=== PATIENT | male | born 1995 | race African-American/Black ===

== ENCOUNTER 2022-05-08 09:08 | Inpatient (IN) ==
--- NOTE | 2022-05-08 09:18 | Emergency Department Note ---
Impression & Plan Acute pulmonary embolism, DVT (deep venous thrombosis) ED Provider Note NAME: JER WHITE AGE: 26 SEX: M : 1995 ARRIVES VIA: Ambulance INFORMANT: Patient ED PROVIDER(S): Vlad Patel DO CHIEF COMPLAINT: chest pain HPI: Patient is a 26-year-old male who presents to the ER for right-sided chest pain. This started last night he was sitting around. He notes when he lays on the right side it is worse. Is also worse with breathing. Patient denies any headache or change in vision. No belly pain, nausea, vomiting, or diarrhea. He notes his right foot has been immobilized for at least the past 2-1/2 months. Denies any new pain tingling or numbness. No dysuria, urgency, or frequency. No other exacerbating or remitting factors. Pain is a 6 out of 10. Brought in by EMS. PAST MEDICAL HISTORY:See Below PAST SURGICAL HISTORY:See Below FAMILY HISTORY:See Below SOCIAL HISTORY:See Below HOME MEDICATIONS:See Below ALLERGIES:See Below VITALS:See Below PHYSICAL EXAMINATION: GENERAL: Sitting up in bed, alert, well appearing, well nourished, no distress, non-toxic EYE EXAM: normal conjunctiva. PERRL and EOM's grossly intact. OROPHARYNX: no exudate, no erythema, lips, buccal mucosa, and tongue normal and mucous membranes are moist NECK: supple, no nuchal rigidity, no adenopathy, non-tender LUNGS: Clear to auscultation. Normal chest wall mechanics HEART: no murmurs, S1 normal and S2 normal ABDOMEN: abdomen soft, non-tender, normo-active bowel sounds, no masses, no rebound or guarding. UPPER EXTREMITIES: upper extremities are grossly normal. LOWER EXTREMITIES: right calf in splint NEURO EXAM: Normal sensorium, cranial nerves II-XII grossly intact, normal speech, no gross weakness of arms, no gross weakness of legs. MEDICAL DECISION MAKING: Patient is a 26-year-old male who presents ER for chest pain which started in the past 24 hours. External records reviewed. Like he has been in cast/boot for over 2 months. IV was established blood was obtained. Borderline tachycardic. Labs show no significant leukocytosis or anemia. BMP with LFTs bilirubin and lipase is unremarkable. Troponin was negative. COVID-negative. CT angio of the chest confirms multiple PEs. Duplex of the right lower extremity confirms DVT. Patient was updated bedside. No bleeding risk factors, recent surgeries, coughing up blood, vomiting blood, urinating blood or previous head bleeds. Last surgery was on his leg over a month ago. Heparin drip and bolus ordered. Updated at bedside. Discussed with Dr. Holden Sequeira and patient was admitted to the hospital service for further evaluation of his multiple PEs. Triage Nursing notes reviewed. Limited review of prior medical records performed Vital Signs: reviewed and remarkable for no significant abnormalities Differential diagnosis: Cardiac ischemia, aortic dissection, pulmonary embolism, pneumothorax, pneumonia, pericarditis, myocarditis, esophageal rupture, GERD, cholecystitis, pancreatitis, musculoskeletal, as well as other pathologies. ER treatment provided: See below Diagnostics interpreted by me include EKG and cardiac monitoring as listed below: -Cardiac Monitoring: An order was placed for continuous cardiac monitoring. The monitor shows a rate of 80 with sinus rhythm. -ECG: Sinus rhythm rate 87 Normal axis No PVCs ST segment elevation in V3 through V6 -Laboratory studies:Interpreted by me as stated above in MDM and shown below. Imaging studies: Xrays: As interpreted by me: Portable AP upright 1 view of the chest shows no focal infiltrate CTs show: CT angio shows multiple PEs Duplex of the right lower extremity shows DVT Consultation(s): Discussed with Dr. Holden Sequeira for further evaluation treatment and management. Discussed with Brayden from orthopedic surgery. Procedures:none Critical Care: I have personally spent 32 minutes of critical care time in the direct management of this patient. This includes bedside care, interpretation of diagnostic studies, and testing, discussion with consultants, patient, and family members, and other required patient management activities. This 32 minutes is in excess of all separately billable procedures. Past Med/Surg History Medical History (Updated 05/08/22 @ 11:45 by Holden Sequeira MD) Asthma excercise induced, uses inhaler prior to working out 4-5 times per week Environmental and seasonal allergies GERD (gastroesophageal reflux disease) Palpitations 07/2021- saw Isabella Helm for "benign palpitations"; happens occasionally, "every few weeks or so" Sickle cell trait Sleep apnea cpap Surgical History Hx of wisdom tooth extraction No significant past surgical history Family History (Updated 03/31/22 @ 15:44 by Ladonna Morocho RN) Other No family history of adverse response to anesthesia Social History Smoking Status: Never smoker Second Hand Exposure: No; Hx Alcohol Use: Yes Hx Substance Use: No Preferred Language: Nepalese Communication Ability: Effective Packager Hand Required: No Beliefs That Will Affect Care: None Current Living Situation: Other Current Living Situation Comment: roommate Feels Safe at Home: Yes Assistive Devices: CPAP and Glasses Allergies Allergies Allergy/AdvReac Type Severity Reaction Status Date / Time nickel Allergy Intermediate Rash Verified 04/11/22 07:26 pollen extracts Allergy Intermediate ITCHY Verified 04/11/22 07:26 EYES, SNEEZING, CONGESTION Home Meds Home Medications Medication Instructions Recorded Confirmed albuterol sulfate 90 mcg/actuation 2 puff inhalation DIRECTED PRN 01/26/22 05/08/22 aerosol inhaler Shortness Of Breath Or Wheezing cetirizine 10 mg tablet (Zyrtec) 10 mg PO QAM 01/26/22 05/08/22 cholecalciferol (vitamin D3) 125 125 mcg PO QAM 01/26/22 05/08/22 mcg (5,000 unit) tablet (Vitamin D3) fluticasone 250 mcg-salmeterol 50 1 inh inhalation BID 01/26/22 05/08/22 mcg/dose blistr powdr for inhalation (Advair Diskus) montelukast 10 mg tablet 10 mg PO QAM 01/26/22 05/08/22 (Singulair) desonide 0.05 % topical cream 1 applic topical UD PRN ezcema 03/31/22 05/08/22 omeprazole magnesium 20 mg 20 mg PO QAM PRN gerd 03/31/22 05/08/22 tablet,delayed release (Prilosec OTC) fluticasone propionate 50 2 spray intranasal DAILY PRN Nasal 05/08/22 05/08/22 mcg/actuation nasal Congestion spray,suspension Results & Data (ED) Vital Signs Vital Signs - 24 hr 05/08/22 09:15 05/08/22 09:15 05/08/22 09:25 Temperature 36.9 C Temperature Source Oral Pulse Rate 103 H 95 H Pulse Rate [Apical] 93 H Respiratory Rate 18 18 18 Respiratory Effort / Characteristics Non-Labored Spontaneous Non-Labored Spontaneous Respiratory Depth Normal Normal Respiratory Pattern Regular Blood Pressure 165/118 H Blood Pressure [Right Arm] 165/118 H Blood Pressure Mean 133 Blood Pressure Mean [Right Arm] 133 Blood Pressure Position [Right Arm] Sitting Pulse Oximetry 96 97 97 Oxygen Delivery Method Room Air Room Air Room Air Sepsis New/Unexplained Change in Mental Status N/A Sepsis Action Taken by Nursing No Action Required Laboratory Data 05/08/22 09:20 05/08/22 09:20 Lab Results 05/08/22 05/08/22 05/08/22 Range/Units 09:20 09:20 09:20 WBC 6.43 (4.8-10.8) K/ul RBC 5.65 (4.70-6.10) M/uL Hgb 16.1 (14.0-18.0) g/dl Hct 46.8 (42.0-52.0) % MCV 82.8 (80.0-100.0) fL MCH 28.5 (25.0-34.0) pg MCHC 34.4 (32.0-36.0) g/dL RDW Std Deviation 36.4 (36.4-46.3) fL RDW Coeff of Lisbet 11.9 (11.5-14.5) % Plt Count 247 (130-400) K/uL MPV 10.1 (9.4-12.4) fL Immature Gran % (Auto) 0.2 % Neut % (Auto) 56.4 % Lymph % (Auto) 28.8 % [place] % (Auto) 11.5 % Eos % (Auto) 2.6 % Baso % (Auto) 0.5 % Neut # (Auto) 3.63 (1.40-6.50) K/uL Lymph # (Auto) 1.85 (1.2-3.4) K/uL [place] # (Auto) 0.74 H (0.11-0.59) K/uL Eos # (Auto) 0.17 (0-0.50) K/uL Baso # (Auto) 0.03 (0-0.2) K/uL Immature Gran # (Auto) 0.01 (0.01-0.20) K/uL PT 11.5 (9.0-12.0) Seconds INR 1.1 (0.9-1.1) APTT 25.6 (21.0-31.0) Seconds PTT Ratio 0.9 Sodium 140 (136-145) mmol/L Potassium 4.0 (3.5-5.1) mmol/L Chloride 104 (98-107) mmol/L Carbon Dioxide 30 (21-32) mmol/L Anion Gap 6 (3-11) BUN 11 (6-23) mg/dl Creatinine 1.18 (0.6-1.4) mg/dl Est Cr Clr Drug Dosing 106.6 ml/min Est GFR ( Amer) 98.8 ml/min Est GFR (Non-Af Amer) 85.3 ml/min BUN/Creatinine Ratio 9.3 L (10-20) Glucose 90 (70-99(Fasting)) mg/dl Calcium 10.2 H (8.5-10.1) mg/dl Total Bilirubin 0.9 (0.2-1.0) mg/dl AST 22 (13-39) U/L ALT 28 (7-52) U/L Alkaline Phosphatase 53 (34-104) U/L Troponin I High Sens 4.2 (0-20) pg/ml Total Protein 8.0 (6.0-8.3) gm/dl Albumin 4.3 (3.4-5.0) gm/dl Globulin 3.7 (2.5-4.0) gm/dl Albumin/Globulin Ratio 1.2 (0.9-2) Lipase 26 (11-82) U/L SARS-CoV-2, RNA, NAAT (NEGATIVE) 05/08/22 Range/Units 11:11 WBC (4.8-10.8) K/ul RBC (4.70-6.10) M/uL Hgb (14.0-18.0) g/dl Hct (42.0-52.0) % MCV (80.0-100.0) fL MCH (25.0-34.0) pg MCHC (32.0-36.0) g/dL RDW Std Deviation (36.4-46.3) fL RDW Coeff of Lisbet (11.5-14.5) % Plt Count (130-400) K/uL MPV (9.4-12.4) fL Immature Gran % (Auto) % Neut % (Auto) % Lymph % (Auto) % [place] % (Auto) % Eos % (Auto) % Baso % (Auto) % Neut # (Auto) (1.40-6.50) K/uL Lymph # (Auto) (1.2-3.4) K/uL [place] # (Auto) (0.11-0.59) K/uL Eos # (Auto) (0-0.50) K/uL Baso # (Auto) (0-0.2) K/uL Immature Gran # (Auto) (0.01-0.20) K/uL PT (9.0-12.0) Seconds INR (0.9-1.1) APTT (21.0-31.0) Seconds PTT Ratio Sodium (136-145) mmol/L Potassium (3.5-5.1) mmol/L Chloride (98-107) mmol/L Carbon Dioxide (21-32) mmol/L Anion Gap (3-11) BUN (6-23) mg/dl Creatinine (0.6-1.4) mg/dl Est Cr Clr Drug Dosing ml/min Est GFR ( Amer) ml/min Est GFR (Non-Af Amer) ml/min BUN/Creatinine Ratio (10-20) Glucose (70-99(Fasting)) mg/dl Calcium (8.5-10.1) mg/dl Total Bilirubin (0.2-1.0) mg/dl AST (13-39) U/L ALT (7-52) U/L Alkaline Phosphatase (34-104) U/L Troponin I High Sens (0-20) pg/ml Total Protein (6.0-8.3) gm/dl Albumin (3.4-5.0) gm/dl Globulin (2.5-4.0) gm/dl Albumin/Globulin Ratio (0.9-2) Lipase (11-82) U/L SARS-CoV-2, RNA, NAAT NEGATIVE (NEGATIVE) Administered Medications Discontinued Medications Enoxaparin Sodium (Enoxaparin Inj 120 Mg/0.8 Ml Syr) 120 mg SQ ONE STA Stop: 05/08/22 12:19 Last Admin: 05/08/22 13:45 Dose: 120 mg Documented By: AB Heparin Sodium/Dextrose (Heparin Iv Adult Wt-Based Standard With Bolus Protocol) 1 each IV NOW STA; Protocol Stop: 05/08/22 11:05 Last Admin: 05/08/22 12:19 Dose: Not Given Documented By: ARSENIO Ioversol (Optiray 320 500ml) 114 ml IV ONCE ONE Stop: 05/08/22 10:40 Last Admin: 05/08/22 10:40 Dose: 114 ml Documented By: DESIREE Imaging Data Radiologist's Impression: Chest CTA 05/08/22 09:14 CT ANGIOGRAM OF THE CHEST CLINICAL HISTORY: Dyspnea. Right-sided chest pain. COMPARISON STUDY: Chest x-ray dated 05/08/2022. TECHNIQUE: Following the IV administration of 114 cc of Optiray 320, CT angiogram of the chest was performed from the upper abdomen to the thoracic inlet utilizing the pulmonary embolus protocol. Images are reviewed in the axial, sagittal, and coronal planes. 3-D MIPS images are created and assessed. IV contrast was administered without complication. A dose lowering technique was utilized adhering to the principles of ALARA. CT DOSE: 833.11 mGy.cm FINDINGS: Thyroid: Imaged portions of the thyroid gland are normal in size and attenuatio n. Thoracic aorta: The thoracic aorta is normal in caliber and demonstrates standard 3-vessel arch anatomy. No dissection is seen. Pulmonary vasculature: The pulmonary trunk is normal in caliber. There are segmental and subsegmental pulmonary emboli within branches the right lower lobe pulmonary artery. This is best seen on axial image #116. No additional pulmonary emboli are seen bilaterally. Heart: The heart is normal in size and without pericardial effusion. Lungs and pleural spaces: There is trace right pleural effusion with associated atelectasis. The lungs are otherwise clear. The trachea and central airways are patent. Mediastinum: There is no mediastinal lymphadenopathy. Anny: Clear. Axillae: There is no axillary lymphadenopathy. Upper abdomen: Partially visualized upper abdominal viscera is within normal limits. Skeletal structures: No lytic or blastic bony lesions are seen. IMPRESSION: 1. There are segmental and subsegmental pulmonary emboli within branches of the right lower lobe pulmonary artery. 2. No additional pulmonary emboli are identified. 3. Trace right pleural effusion. 4. There is no airspace consolidation typical for pneumonia. ACT 112: Negative or not required by law. Electronically signed by: Nick Lambert M.D. 05/08/2022 10:48 AM Chest X-Ray 05/08/22 09:14 XR chest 1V portable CLINICAL HISTORY: Chest pain, nonspecific COMPARISON STUDY: Chest radiograph December 21, 2020. FINDINGS: Low lung volumes are noted. This may reflect a hypoventilatory study. There is no consolidation or evidence for pulmonary edema. Cardiomediastinal silhouette is unremarkable. IMPRESSION: No acute cardiopulmonary findings. ACT 112: Negative or not required by law. Electronically signed by: Leo Funk M.D. 05/08/2022 9:41 AM Venous Doppler Study 05/08/22 09:14 US venous doppler LE RT HISTORY: 26 years-old Male rle dvt ? Acute pain and swelling of the lower extremities COMPARISON: None TECHNIQUE: Multiple real-time sonographic images of the right lower extremity deep venous structures were obtained assessing grayscale appearance, color and spectral flow. FINDINGS: Occlusive thrombus noted within the peroneal and within one of the duplicated posterior tibial veins. Otherwise normal flow, compressibility, phasicity and augmentation. IMPRESSION: Likely acute right lower extremity DVT. ACT 112: Negative or not required by law. The above report was generated using voice recognition software. It may contain grammatical, syntax or spelling errors. Electronically signed by: Nadeem Hennessy M.D. 05/08/2022 10:27 AM Discharge Plan Visit Data Chief Complaint: Rib Injury/Pain ED Provider: Vlad Patel Discharge Problem: Acute pulmonary embolism, DVT (deep venous thrombosis) Patient Disposition: Admitted As Inpatient Discharge Instructions Interventions: ED Discharge Assessment Last Done: 05/08/22 12:50
--- NOTE | 2022-05-08 09:43 | XRay Report ---
XR chest 1V portable CLINICAL HISTORY: Chest pain, nonspecific COMPARISON STUDY: Chest radiograph December 21, 2020. FINDINGS: Low lung volumes are noted. This may reflect a hypoventilatory study. There is no consolida tion or evidence for pulmonary edema. Cardiomediastinal silhouette is unremarkable. IMPRESSION: No acute cardiopulmonary findings. ACT 112: Negative or not required by law. Electronically signed by: Leo Funk M.D. 05/08/2022 9:41 AM
[2022-05-08 10:01] LABS: Basophils # (auto) 0.03 K/uL (0-0.2); Basophils % (auto) 0.5 %; Eosinophils # (auto) 0.17 K/uL (0-0.50); Eosinophils % (auto) 2.6 %; Hematocrit (blood only) 46.8 % (42.0-52.0); Hemoglobin 16.1 g/dl (14.0-18.0); Immature Granulocytes # (auto) 0.01 K/uL (0.01-0.20); Immature Granulocytes % (auto) 0.2 %; Lymphocytes # (auto) 1.85 K/uL (1.2-3.4); Lymphocytes % (auto) 28.8 %; Mean Corpuscular Hemoglobin 28.5 pg (25.0-34.0); Mean Corpuscular Hgb Conc 34.4 g/dL (32.0-36.0); Mean Corpuscular Volume 82.8 fL (80.0-100.0); Mean Platelet Volume 10.1 fL (9.4-12.4); Monocytes # (auto) 0.74 K/uL (0.11-0.59); Monocytes % (auto) 11.5 %; Neutrophils # (auto) 3.63 K/uL (1.40-6.50); Neutrophils % (auto) 56.4 %; Platelet Count 247 K/uL (130-400); RDW Coefficient of Variation 11.9 % (11.5-14.5); RDW Standard Deviation 36.4 fL (36.4-46.3); Red Blood Count 5.65 M/uL (4.70-6.10); White Blood Count 6.43 K/ul (4.8-10.8)
[2022-05-08 10:20] LABS: Albumin Globulin Ratio 1.2 (0.9-2); Albumin Level 4.3 gm/dl (3.4-5.0); BUN Creatinine Ratio 9.3 (10-20); Bilirubin,Total 0.9 mg/dl (0.2-1.0); Calcium 10.2 mg/dl (8.5-10.1); Creatinine Clr Calc Pharmacy 106.6 ml/min; Est GFR (African American) 98.8 ml/min; Est GFR (Non-African American) 85.3 ml/min; Globulin 3.7 gm/dl (2.5-4.0)
[2022-05-08 10:25] LABS: Troponin I High Sensitivity 4.2 pg/ml (0-20)
--- NOTE | 2022-05-08 10:28 | Ultrasound Report ---
US venous doppler LE RT HISTORY: 26 years-old Male rle dvt ? Acute pain and swelling of the lower extremities COMPARISON: None TECHNIQUE: Multiple real-time sonographic images of the right lower extremity deep venous structures were obtained assessing grayscale appearance, color and spectral flow. FINDINGS: Occlusive thrombus noted within the peroneal and within one of the duplicated posterior tibial veins. Otherwise normal flow, compressibility, phasicity and augmentation. IMPRESSION: Likely acute right lower extremity DVT. ACT 112: Negative or not required by law. The above report was generated using voice recognition software. It may contain grammatical, syntax o r spelling errors. Electronically signed by: Nadeem Hennessy M.D. 05/08/2022 10:27 AM
[2022-05-08] MEDS ORDERED: OPTIRAY 320 500ml IV ONE (10:39)
--- NOTE | 2022-05-08 10:49 | CT Scan Report ---
CT ANGIOGRAM OF THE CHEST CLINICAL HISTORY: Dyspnea. Right-sided chest pain. COMPARISON STUDY: Chest x-ray dated 05/08/2022. TECHNIQUE: Following the IV administration of 114 cc of Optiray 320, CT angiogram of the chest was pe rformed from the upper abdomen to the thoracic inlet utilizing the pulmonary embolus protocol. Images are reviewed in the axial, sagittal, and coronal planes. 3-D MIPS images are created and assessed. I V contrast was administered without complication. A dose lowering technique was utilized adhering to the principles of ALARA. CT DOSE: 833.11 mGy.cm FINDINGS: Thyroid: Imaged portions of the thyroid gland are normal in size and attenuation. Thoracic aorta: The thoracic aorta is normal in caliber and demonstrates standard 3-vessel arch anato my. No dissection is seen. Pulmonary vasculature: The pulmonary trunk is normal in caliber. There are segmental and subsegmental pulmonary emboli within branches the right lower lobe pulmonary artery. This is best seen on axial i mage #116. No additional pulmonary emboli are seen bilaterally. Heart: The heart is normal in size and without pericardial effusion. Lungs and pleural spaces: There is trace right pleural effusion with associated atelectasis. The lung s are otherwise clear. The trachea and central airways are patent. Mediastinum: There is no mediastinal lymphadenopathy. Anny: Clear. Axillae: There is no axillary lymphadenopathy. Upper abdomen: Partially visualized upper abdominal viscera is within normal limits. Skeletal structures: No lytic or blastic bony lesions are seen. IMPRESSION: 1. There are segmental and subsegmental pulmonary emboli within branches of the right lower lobe pulm onary artery. 2. No additional pulmonary emboli are identified. 3. Trace right pleural effusion. 4. There is no airspace consolidation typical for pneumonia. ACT 112: Negative or not required by law. Electronically signed by: Nick Lambert M.D. 05/08/2022 10:48 AM
[2022-05-08] MEDS ORDERED: Heparin IV Adult Wt-Based Standard WITH Bolus Protocol IV STA (11:04)
[2022-05-08] MEDS ORDERED: HEPARIN SOD (PORCINE) 1000 UNIT/ML IV ONE (11:19)
--- NOTE | 2022-05-08 11:19 | History & Physical Report ---
Date of Service May 08, 2022 Assessment & Plan (1) Acute pulmonary embolism: Plan: Provoked due to current CAM boot and recent surgery - consider 3 months of anticoagulation depending ongoing risk of using the Cam boot Increased risk chronically due to sickle cell trait although no family history of venous thromboembolism - consider chemical prophylaxis in the future during higher risk activities such as long haul flights / car journeys. PESI score 35 -very low risk, 0 to 1.6% 30-day mortality Initial troponin negative and relatively small pulmonary emboli, no need for TTE Pending PT/INR and PTT will start on Lovenox 1 mg/kg twice daily with goal to switch to DOAC on discharge (discussed with Dr Espinoza regarding DOAC given increased BMI) (2) Environmental and seasonal allergies: Plan: Continue montelukast 10 mg p.o. every morning and cetirizine 10 mg p.o. every morning (3) Asthma: Plan: Uses Advair discus mainly for exercise-induced asthma, not using for the last month therefore we will continue to hold during his current admission (4) Sleep apnea: Plan: CPAP at bedtime - patient to have someone bring in his own (5) Sickle cell trait: Plan VTE Prophylaxis - Anticoagulation as above Diet - regular Disposition - admit to med telemetry Admission and Anticipated Discharge Date Admission Date: May 08, 2022 History of Present Illness Chief Complaint: Chest pain Primary Care Provider: LAURA Berman Abdi is a 26 year old male who presents to the ER with right-sided chest pain. He reports pain feeling behind his ribs starting at 7 to 8 PM last night. Progressively got worse although was able to get to sleep last night. On waking up this morning he became more severe, worse while rolling over to the right side and on inspiration, radiating up to his shoulder. Current severity 4/10, at worst 6/10. He called the medical hotline and was advised to go to the ER. He denies any shortness of breath. This is on a background of a right tibia stress fracture. He reports being in a cam boot initially for 2 months prior to surgery on April 11 and has been toe-touch weightbearing in a cam boot since then. He took aspirin 81 mg p.o. twice daily after surgery for 1 week but no VTE prophylaxis after this. No recent long-haul flights of car journeys. No known personal or family history of venous thromboembolism. He is at increased risk due to sickle cell trait. Allergies Allergy/AdvReac Type Severity Reaction Status Date / Time nickel Allergy Intermediate Rash Verified 04/11/22 07:26 pollen extracts Allergy Intermediate ITCHY Verified 04/11/22 07:26 EYES, SNEEZING, CONGESTION Home Medications Medication Instructions Recorded Confirmed Type albuterol sulfate 90 mcg/actuation 2 puff inhalation DIRECTED PRN 01/26/22 05/08/22 History aerosol inhaler Shortness Of Breath Or Wheezing cetirizine 10 mg tablet (Zyrtec) 10 mg PO QAM 01/26/22 05/08/22 History cholecalciferol (vitamin D3) 125 125 mcg PO QAM 01/26/22 05/08/22 History mcg (5,000 unit) tablet (Vitamin D3) fluticasone 250 mcg-salmeterol 50 1 inh inhalation BID 01/26/22 05/08/22 History mcg/dose blistr powdr for inhalation (Advair Diskus) montelukast 10 mg tablet 10 mg PO QAM 01/26/22 05/08/22 History (Singulair) desonide 0.05 % topical cream 1 applic topical UD PRN ezcema 03/31/22 05/08/22 History omeprazole magnesium 20 mg 20 mg PO QAM PRN gerd 03/31/22 05/08/22 History tablet,delayed release (Prilosec OTC) fluticasone propionate 50 2 spray intranasal DAILY PRN Nasal 05/08/22 05/08/22 History mcg/actuation nasal Congestion spray,suspension Past Med/Surg History Medical History (Updated 05/08/22 @ 11:45 by Holden Sequeira MD) Asthma excercise induced, uses inhaler prior to working out 4-5 times per week Environmental and seasonal allergies GERD (gastroesophageal reflux disease) Palpitations 07/2021- saw Isabella Helm for "benign palpitations"; happens occasionally, "every few weeks or so" Sickle cell trait Sleep apnea cpap Surgical History Hx of wisdom tooth extraction No significant past surgical history Family History (Updated 03/31/22 @ 15:44 by Ladonna Morocho RN) Other No family history of adverse response to anesthesia Social History Smoking Status: Never smoker Second Hand Exposure: No; Hx Alcohol Use: Yes Hx Substance Use: No Preferred Language: Tamazight Communication Ability: Effective Reconditioner Required: No Beliefs That Will Affect Care: None Current Living Situation: Other Current Living Situation Comment: roommate Feels Safe at Home: Yes Assistive Devices: CPAP and Glasses Review of Systems Review of Systems: All systems reviewed & are unremarkable except as noted in HPI & below Physical Exam Constitutional: WD/WN, vitals as above Eyes: + anicteric sclerae; normal pupil size ENMT: external ear and nose normal, oropharynx normal Respiratory: normal respiratory effort, lungs clear to auscultation Cardiovascular: RRR, no murmur, no edema Gastrointestinal (Abdomen): normal bowel sounds, soft, nontender, no hepatosplenomegaly Musculoskeletal: Right leg not examined, currently in CAM boot Skin: no rashes, warm and dry Neurologic: moves all extremities and awake; not confused Psychiatric: A+Ox3, euthymic affect Results & Data Results & Data ([facility] [place]) Vital Signs (Past 12 Hours) Vital Signs Temp Pulse Pulse Resp BP BP Pulse Ox 05/08/22 09:25 95 H 18 97 05/08/22 09:15 93 H 18 165/118 H 97 05/08/22 09:15 36.9 C 103 H 18 165/118 H 96 O2 Del Method 05/08/22 09:25 Room Air 05/08/22 09:15 Room Air 05/08/22 09:15 Room Air Laboratory Results Abnormal lab results 05/08/22 05/08/22 Range/Units 09:20 09:20 [place] # (Auto) 0.74 H (0.11-0.59) K/uL BUN/Creatinine Ratio 9.3 L (10-20) Calcium 10.2 H (8.5-10.1) mg/dl Diagnostic Findings XR chest 1V portable CLINICAL HISTORY: Chest pain, nonspecific COMPARISON STUDY: Chest radiograph December 21, 2020. FINDINGS: Low lung volumes are noted. This may reflect a hypoventilatory study. There is no consolidation or evidence for pulmonary edema. Cardiomediastinal silhouette is unremarkable. IMPRESSION: No acute cardiopulmonary findings. CT ANGIOGRAM OF THE CHEST CLINICAL HISTORY: Dyspnea. Right-sided chest pain. COMPARISON STUDY: Chest x-ray dated 05/08/2022. TECHNIQUE: Following the IV administration of 114 cc of Optiray 320, CT angiogram of the chest was performed from the upper abdomen to the thoracic inlet utilizing the pulmonary embolus protocol. Images are reviewed in the axi al, sagittal, and coronal planes. 3-D MIPS images are created and assessed. IV contrast was administered without complication. A dose lowering technique was utilized adhering to the principles of ALARA. CT DOSE: 833.11 mGy.cm FINDINGS: Thyroid: Imaged portions of the thyroid gland are normal in size and attenuation. Thoracic aorta: The thoracic aorta is normal in caliber and demonstrates monet dard 3-vessel arch anatomy. No dissection is seen. Pulmonary vasculature: The pulmonary trunk is normal in caliber. There are segmental and subsegmental pulmonary emboli within branches the right lower lobe pulmonary artery. This is best seen on axial image #116. No additional pulmonary emboli are seen bilaterally. Heart: The heart is normal in size and without pericardial effusion. Lungs and pleural spaces: There is trace right pleural effusion with associated atelectasis. The lungs are otherwise clear. The trachea and central airways are patent. Mediastinum: There is no mediastinal lymphadenopathy. Anny: Clear. Axillae: There is no axillary lymphadenopathy. Upper abdomen: Partially visualized upper abdominal viscera is within normal limits. Skeletal structures: No lytic or blastic bony lesions are seen. IMPRESSION: 1. There are segmental and subsegmental pulmonary emboli within branches of the right lower lobe pulmonary artery. 2. No additional pulmonary emboli are identified. 3. Trace right pleural effusion. 4. There is no airspace consolidation typical for pneumonia. US venous doppler LE RT HISTORY: 26 years-old Male rle dvt ? Acute pain and swelling of the lower extremities COMPARISON: None TECHNIQUE: Multiple real-time sonographic images of the right lower extremity deep venous structures were obtained assessing grayscale appearance, color and spectral flow. FINDINGS: Occlusive thrombus noted within the peroneal and within one of the duplicated posterior tibial veins. Otherwise normal flow, compressibility, phasicity and augmentation. IMPRESSION: Likely acute right lower extremity DVT. Medications Administered ER medications given: None ECG Indication: chest pain Rate (beats per minute): 87 Rhythm: normal sinus Findings: + nonspecific-ST abn Change: no significant change Code Status & VTE Plan Code Status Full VTE Prophylaxis Plan VTE Prophylaxis will be ordered: Yes PG Care Time/CCT Total # of Minutes Spent Total Time Spent with Patient: Total time spent is greater than 50% in coordination of care (as documented) at patient's floor/unit and/or counseling patient: Coding Level of Care Code 28287 INT INP/OBS CARE 2/55MIN Diagnoses Acute pulmonary embolism I26.99 Environmental and seasonal allergies J30.89 Asthma J45.909 Sleep apnea G47.30 Sickle cell trait D57.3
[2022-05-08] MEDS ORDERED: HEPARIN SODIUM/DEXTROSE 25,000 UNITS/500 ML BAG IV SCH (11:30)
[2022-05-08 12:01] LABS: INR 1.1 (0.9-1.1); Partial Thromboplastin Ratio 0.9; Partial Thromboplastin Time 25.6 Seconds (21.0-31.0); Prothrombin Time 11.5 Seconds (9.0-12.0)
[2022-05-08] MEDS ORDERED: ENOXAPARIN 1 MG/KG SQ SCH (12:15)
[2022-05-08] MEDS ORDERED: ENOXAPARIN INJ 120 MG/0.8 ML SYR SQ STA (12:18)
--- NOTE | 2022-05-08 12:23 | Electrocardiogram Report ---
Test Reason : Blood Pressure : / mmHG Vent. Rate : 087 BPM Atrial Rate : 087 BPM P-R Int : 142 ms QRS Dur : 084 ms QT Int : 330 ms P-R-T Axes : 044 047 021 degrees QTc Int : 397 ms Normal sinus rhythm Minor ST elevation, most consistent with repolarization variant Normal ECG No previous ECGs available Confirmed by Ant Frey ([id number]) on 05/08/2022 12:22:53 PM Referred By: Confirmed By:Ant Frey
[2022-05-08] MEDS ORDERED: ACETAMINOPHEN 325 MG TAB PO PRN (13:13)
[2022-05-08] MEDS ORDERED: traMADol HCL 50 MG TABLET PO PRN ×2 (13:13)
[2022-05-08] MEDS ORDERED: ONDANSETRON INJ 2 MG/ML 2 ML VIAL IV PRN (13:13)
[2022-05-08] MEDS: CETIRIZINE HCL 10 MG TABLET PO SCH (15:31)
[2022-05-08] MEDS: CHOLECALCIFEROL 5,000 UNITS 125 MCG TAB PO SCH (15:32)
[2022-05-09] MEDS: ENOXAPARIN INJ 120 MG/0.8 ML SYR SQ SCH ×2 (00:36→08:55)
[2022-05-09 08:45] LABS: Hematocrit (blood only) 46.1 % (42.0-52.0); Hemoglobin 16.8 g/dl (14.0-18.0); Mean Corpuscular Hemoglobin 29.5 pg (25.0-34.0); Mean Corpuscular Hgb Conc 36.4 g/dL (32.0-36.0); Mean Platelet Volume 11.2 fL (9.4-12.4); Platelet Count 268 K/uL (130-400); RDW Coefficient of Variation 11.9 % (11.5-14.5); RDW Standard Deviation 35.3 fL (36.4-46.3); Red Blood Count 5.69 M/uL (4.70-6.10); White Blood Count 5.73 K/ul (4.8-10.8)
[2022-05-09] MEDS: CETIRIZINE HCL 10 MG TABLET PO SCH (08:55)
[2022-05-09] MEDS: CHOLECALCIFEROL 5,000 UNITS 125 MCG TAB PO SCH (08:56)
[2022-05-09] MEDS ORDERED: MONTELUKAST SODIUM 10 MG TABLET PO SCH (09:00)
[2022-05-09 09:08] LABS: Anion Gap 7 (3-11); BUN Creatinine Ratio 11.3 (10-20); Blood Urea Nitrogen 16 mg/dl (6-23); Calcium 10.1 mg/dl (8.5-10.1); Carbon Dioxide 29 mmol/L (21-32); Chloride 101 mmol/L (98-107); Creatinine Clr Calc Pharmacy 88.6 ml/min; Est GFR (Non-African American) 68.2 ml/min; Glucose 82 mg/dl (70-99(Fasting)); Sodium 137 mmol/L (136-145)
--- NOTE | 2022-05-09 11:34 | Discharge Summary ---
Date of Service May 09, 2022 Admission HPI Per Admitting Provider Grovermagnusramos Patton is a 26 year old male who presents to the ER with right-sided chest pain. He reports pain feeling behind his ribs starting at 7 to 8 PM last night. Progressively got worse although was able to get to sleep last night. On waking up this morning he became more severe, worse while rolling over to the right side and on inspiration, radiating up to his shoulder. Current severity 4/10, at worst 6/10. He called the medical hotline and was advised to go to the ER. He denies any shortness of breath. This is on a background of a right tibia stress fracture. He reports being in a cam boot initially for 2 months prior to surgery on April 11 and has been toe-touch weightbearing in a cam boot since then. He took aspirin 81 mg p.o. twice daily after surgery for 1 week but no VTE prophylaxis after this. No recent long-haul flights of car journeys. No known personal or family history of venous thromboembolism. He is at increased risk due to sickle cell trait. Principal Diagnosis Right lower extremity DVT, acute pulmonary embolism Discharge Exam General-alert and oriented x3, no fevers, no chills HEENT-head atraumatic and normocephalic, pupils equal and reactive to light, extraocular muscles intact Neck-no lymphadenopathy or thyromegaly, trachea midline Chest-clear to auscultation percussion. No rales wheezing or rhonchi Cardiac-regular rate and rhythm, normal S1 and S2 Abdomen-normal bowel sounds, nontender, no hepatosplenomegaly Extremities-right lower extremity immobilized in a walking boot Neuro-cranial nerves II through XII intact, motor and sensory function within normal limits, strength symmetrical , no focal deficits Psych-normal affect, normal mood Discharge Data Allergies Allergy/AdvReac Type Severity Reaction Status Date / Time nickel Allergy Intermediate Rash Verified 04/11/22 07:26 pollen extracts Allergy Intermediate ITCHY Verified 04/11/22 07:26 EYES, SNEEZING, CONGESTION Ordered Studies 05/08/22 09:14 CT angio chest PE protocol Stat US venous doppler LE RT Stat Hospital Course (1) Acute pulmonary embolism: Probably related to acute right lower extremity DVT associated with the underlying tibial fracture and subsequent boot placement. He is hemodynamically stable and not requiring any oxygen supplementation. He has been treated with intravenous heparin while hospitalized and will be discharged on Eliquis. (2) Environmental and seasonal allergies: Continue montelukast 10 mg p.o. every morning and cetirizine 10 mg p.o. every morning (3) Asthma: Uses Advair discus mainly for exercise-induced asthma. Currently stable (4) Sleep apnea: CPAP at bedtime (5) Sickle cell trait: Aware. No intervention necessary at this time (6) Right leg DVT: Treated while hospitalized with intravenous heparin drip. Oral Eliquis at discharge Plan Home today, May 09, on Eliquis. Follow-up with PCP. Total Time Total Time Spent Total Time Spent (In Minutes): 35 minutes Discharge Plan Discharge Items Patient Disposition: Home - Self-Care Reason For Visit: ACUTE PULMONARY EMBOLI Discharge Diagnosis: Acute right lower extremity DVT, acute pulmonary embolism Activity: Resume your previous activity Non-emergency contact: Primary Care Provider Call non-emergency contact if: you have any medication questions Follow-up/Referrals: Katelin Christianson CRNP [Primary Care Provider] - Diet: Regular Addtl Attending Provider Instructions: Take Eliquis 5 mg twice daily Pending Studies at Discharge: No Stand-Alone Forms: My [employer], Smoking Cessation Medications and DC Order Prescriptions: New Eliquis 5 mg tablet 5 mg PO BID Qty: 20 0RF Continued desonide 0.05 % cream 1 applic TOPICAL UD PRN (Reason: ezcema) omeprazole magnesium [Prilosec OTC] 20 mg Tablet,Delayed Release (Dr/Ec) 20 mg PO QAM PRN (Reason: gerd) fluticasone propionate [Flonase] 50 mcg/actuation [place],Suspension 2 spray INTRANASAL DAILY PRN (Reason: Nasal Congestion) Rx Instructions: administer into each nostril fluticasone propion-salmeterol [Advair Diskus] 250-50 mcg/dose Blister With Device 1 inh INHALATION BID cetirizine [Zyrtec] 10 mg Tablet 10 mg PO QAM montelukast [Singulair] 10 mg Tablet 10 mg PO QAM albuterol sulfate 90 mcg/actuation Hfa Aerosol Inhaler 2 puff INHALATION DIRECTED PRN (Reason: Shortness Of Breath Or Wheezing) cholecalciferol (vitamin D3) [Vitamin D3] 125 mcg (5,000 unit) Tablet 125 mcg PO QAM Discharge Orders: Discharge Order (Routine); Ordered 05/09/22 Ordered By: Jesus Thurman Admission Data Admit Date/Time: 05/08/22 11:39 Attending Provider: Jesus Thurman Admit Provider: Holden Sequeira Primary Care Provider: Katelin Christianson Coding Level of Care Code HOSP INP/OBS DISCH >30 MIN Diagnoses Acute pulmonary embolism I26.99 Environmental and seasonal allergies J30.89 Asthma J45.909 Sleep apnea G47.30 Sickle cell trait D57.3 Right leg DVT I82.401
== END 2022-05-09 13:00 | disposition home or self-care (01) | DRG 176 ==
LOC: ED 09:08 → SUATTDRO 11:39 → EDINP 11:39 → 2N 12:50

== ENCOUNTER 2022-08-10 17:50 | Inpatient (IN) ==
[2022-08-10] MEDS ORDERED: SODIUM CHLORIDE 0.9% 1000ML 2,000 ML IV ONE (18:06)
--- NOTE | 2022-08-10 18:24 | Emergency Department Note ---
History of Present Illness General Chief complaint: Tachycardia Stated complaint: HIGH HEART RATE,SOB,SORENESS IN LEFT LEG Time Seen by Provider: 08/10/22 18:00 History of Present Illness Provider complaint: Palpitations left leg pain shortness of breath Onset (ago): day(s) 4 Maximum Pain Intensity: 5 27-year-old male with history of DVT and PE presents emergency department for 4 days of palpitations, shortness of breath, and left lower extremity pain. Patient reports that he suffered a DVT in the right lower extremity and pulmonary embolus after a orthopedic surgery in March. Patient states he was on Eliquis and was told to stop taking his Eliquis on August 05. He reports that on August 06 he started having his symptoms. Patient reports his Apple Watch has been having readings in the 130s to 140s. He reports feeling lightheaded and shortness of breath. Reports no chest pain. Pain in the left lower extremity is in the left popliteal suprapatellar and lateral thigh area. No exogenous hormone use or steroid usage. No excessive activity. No hematuria or dysuria. No melena or hematochezia. No nausea vomiting or diarrhea. Home Medications Medication Instructions Recorded Confirmed Type albuterol sulfate 90 mcg/actuation 2 puff inhalation DIRECTED PRN 01/26/22 08/10/22 History aerosol inhaler Shortness Of Breath Or Wheezing cetirizine 10 mg tablet (Zyrtec) 10 mg PO QAM 01/26/22 08/10/22 History cholecalciferol (vitamin D3) 125 125 mcg PO QAM 01/26/22 08/10/22 History mcg (5,000 unit) tablet (Vitamin D3) fluticasone 250 mcg-salmeterol 50 1 inh inhalation BID 01/26/22 08/10/22 History mcg/dose blistr powdr for inhalation (Advair Diskus) montelukast 10 mg tablet 10 mg PO QAM 01/26/22 08/10/22 History (Singulair) desonide 0.05 % topical cream 1 applic topical UD PRN ezcema 03/31/22 08/10/22 History omeprazole magnesium 20 mg 20 mg PO QAM PRN gerd 03/31/22 08/10/22 History tablet,delayed release (Prilosec OTC) fluticasone propionate 50 2 spray intranasal DAILY PRN Nasal 05/08/22 08/10/22 History mcg/actuation nasal Congestion spray,suspension apixaban 5 mg tablet (Eliquis) 5 mg PO BID #20 tabs 05/09/22 08/10/22 Rx fluoxetine 10 mg capsule 10 mg PO QAM 07/17/22 08/10/22 History trazodone 50 mg tablet 50 mg PO HS 08/10/22 08/10/22 History venlafaxine 150 mg 150 mg PO QAM 08/10/22 08/10/22 History capsule,extended release 24 hr Allergies Allergy/AdvReac Type Severity Reaction Status Date / Time nickel Allergy Intermediate Rash Verified 08/10/22 18:54 pollen extracts Allergy Intermediate ITCHY Verified 08/10/22 18:54 EYES, SNEEZING, CONGESTION Past Med/Surg History Medical History Asthma excercise induced, uses inhaler prior to working out 4-5 times per week Environmental and seasonal allergies GERD (gastroesophageal reflux disease) Palpitations 07/2021- saw Isabella Helm for "benign palpitations"; happens occasionally, "every few weeks or so" Sickle cell trait Sleep apnea cpap Surgical History Hx of wisdom tooth extraction No significant past surgical history Family History Other No family history of adverse response to anesthesia Social History Smoking Status: Never smoker Second Hand Exposure: No; Do You Dip or Chew Tobacco: No; Hx Alcohol Use: Yes Hx Substance Use: No Preferred Language: Luxembourgish Communication Ability: Effective 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 Beliefs That Will Affect Care: None Current Living Situation: Other Current Living Situation Comment: Roommate Feels Safe at Home: Yes Gender Identity: Other Assistive Devices: CPAP and Glasses Physical Exam Vital Signs Vital Signs - 24 hr 08/10/22 17:51 08/10/22 18:07 08/10/22 18:09 Temperature 36.3 C L Temperature Source Temporal Artery Scan Pulse Rate 140 H 124 H Pulse Rate [Apical] 128 H Pulse Rhythm [Apical] Regular Respiratory Rate 18 22 Respiratory Effort / Characteristics Non-Labored Spontaneous Respiratory Depth Normal Respiratory Pattern Regular Blood Pressure 141/81 H Blood Pressure [Right Arm] 152/99 H Blood Pressure Mean 101 Blood Pressure Mean [Right Arm] 116 Blood Pressure Position [Right Arm] Lying Pulse Oximetry 95 95 Oxygen Delivery Method Room Air Room Air Sepsis New/Unexplained Change in Mental Status No Sepsis Action Taken by Nursing No Action Required 08/10/22 18:16 Temperature Temperature Source Pulse Rate Pulse Rate [Apical] Pulse Rhythm [Apical] Respiratory Rate Respiratory Effort / Characteristics Respiratory Depth Respiratory Pattern Blood Pressure Blood Pressure [Right Arm] Blood Pressure Mean Blood Pressure Mean [Right Arm] Blood Pressure Position [Right Arm] Pulse Oximetry 93 Oxygen Delivery Method Room Air Sepsis New/Unexplained Change in Mental Status Sepsis Action Taken by Nursing Physical Exam GENERAL: He is oriented to person, place, and time. He appears well-developed and well-nourished. He does not appear distressed. HENT: Exam performed. - Head: Normocephalic and atraumatic. - Right Ear: External ear normal. No mastoid erythema - Left Ear: External ear normal. No mastoid erythema NECK: Normal range of motion. Neck supple. No JVD present. No tracheal deviation and normal range of motion present. CV: Tachycardic rate, regular rhythm, normal heart sounds and intact distal pulses. There is no peripheral edema. Palpable radial pulses bue. PULM/CHEST: Effort normal and breath sounds normal. No respiratory distress. No stridor. He has no wheezes. He has no rales. - Chest Wall: He exhibits no tenderness. ABD: The abdomen is soft. MUSC/SKEL: Right lower extremity: In brace Left lower extremity: Pain on palpation suprapatellar and lateral thigh area. Pain on palpation of the popliteal and posterior thigh area. Palpable DP PT pulse. Compartments of lower extremity are soft. Palpable DP PT pulse. LYMPH: No cervical adenopathy. NEURO: He is alert and oriented to person, place, and time. He has normal strength. No cranial nerve deficit or sensory deficit. Coordination and gait normal. GCS eye subscore is 4. GCS verbal subscore is 5. GCS motor subscore is 6. Cerebellar tests wnl. SKIN: Skin is warm and dry. He is not diaphoretic. PSYCH: He has a normal mood and affect. Behavior is normal. Judgment and thought content normal. Course Course 1800: The patient was evaluated in room C12. A complete history and physical exam was performed Cardiac monitoring: An order was placed for continuous cardiac monitoring. The monitor shows a rate of 130 with sinus tachycardia rhythm interpreted by 2006: Patient remains tachycardic. Labs within normal limits however imaging does show numerous pulmonary emboli in the multiple lobar and segmental/subsegmental branches. Ultrasound also shows a DVT. The PEs are increased in number compared to his previous UTI in April 2022 when those PEs were thought to be due to his recent surgery. Patient has only been off of the Eliquis for 5 days. For this number of clots to form in 5 days is very surprising. On previous hospitalizations patient had no hypercoagulability work-up. Patient will be admitted on heparin drip to the [facility] team for hypercoagulability work-up and possible echo. Administered Medications Discontinued Medications Sodium Chloride (Nss 1000ml) 2,000 mls @ 999 mls/hr IV .Q2H1M ONE Stop: 08/10/22 20:06 Last Admin: 08/10/22 18:12 Dose: 999 mls/hr Documented By: SANDY Ioversol (Optiray 320 500ml) 109 ml IV ONCE ONE Stop: 08/10/22 19:05 Last Admin: 08/10/22 19:05 Dose: 109 ml Documented By: PURA Critical Care Time Critical Care Time: Yes Total Critical Care Time: 62 I have personally spent greater than 62 minutes of critical care time in the direct management of this patient. This includes bedside care, interpretation of diagnostic studies, and testing, discussion with consultants, patient, and family members, and other required patient management activities. This 62 minutes is in excess of all separately billable procedures. Medical Decision Making Laboratory Data Attestation: I reviewed the patient's lab results. 08/10/22 18:08 08/10/22 18:08 Lab Results 08/10/22 08/10/22 08/10/22 Range/Units 18:08 18:08 18:08 WBC 8.19 (4.8-10.8) K/ul RBC 5.74 (4.70-6.10) M/uL Hgb 16.4 (14.0-18.0) g/dl Hct 46.5 (42.0-52.0) % MCV 81.0 (80.0-100.0) fL MCH 28.6 (25.0-34.0) pg MCHC 35.3 (32.0-36.0) g/dL RDW Std Deviation 37.7 (36.4-46.3) fL RDW Coeff of Lisbet 12.9 (11.5-14.5) % Plt Count 227 (130-400) K/uL MPV 10.4 (9.4-12.4) fL Immature Gran % (Auto) 0.2 % Neut % (Auto) 71.7 % Lymph % (Auto) 18.6 % Grimes % (Auto) 7.9 % Eos % (Auto) 1.2 % Baso % (Auto) 0.4 % Neut # (Auto) 5.87 (1.40-6.50) K/uL Lymph # (Auto) 1.52 (1.2-3.4) K/uL Grimes # (Auto) 0.65 H (0.11-0.59) K/uL Eos # (Auto) 0.10 (0-0.50) K/uL Baso # (Auto) 0.03 (0-0.2) K/uL Immature Gran # (Auto) 0.02 (0.01-0.20) K/uL PT 11.6 (9.0-12.0) Seconds INR 1.1 (0.9-1.1) APTT 24.2 (21.0-31.0) Seconds PTT Ratio 0.9 Sodium 139 (136-145) mmol/L Potassium 4.1 (3.5-5.1) mmol/L Chloride 107 (98-107) mmol/L Carbon Dioxide 26 (21-32) mmol/L Anion Gap 6 (3-11) BUN 12 (6-23) mg/dl Creatinine 1.23 (0.6-1.4) mg/dl Est Cr Clr Drug Dosing 106.5 ml/min Est GFR ( Amer) 93.3 ml/min Est GFR (Non-Af Amer) 80.5 ml/min BUN/Creatinine Ratio 9.8 L (10-20) Glucose 122 H (70-99(Fasting)) mg/dl Calcium 9.8 (8.6-10.3) mg/dl Total Creatine Kinase 230 H (30-223) U/L Troponin I High Sens 5.6 (0-20) pg/ml Lipase 34 (11-82) U/L SARS-CoV-2, RNA, NAAT (NEGATIVE) 08/10/22 Range/Units 18:17 WBC (4.8-10.8) K/ul RBC (4.70-6.10) M/uL Hgb (14.0-18.0) g/dl Hct (42.0-52.0) % MCV (80.0-100.0) fL MCH (25.0-34.0) pg MCHC (32.0-36.0) g/dL RDW Std Deviation (36.4-46.3) fL RDW Coeff of Lisbet (11.5-14.5) % Plt Count (130-400) K/uL MPV (9.4-12.4) fL Immature Gran % (Auto) % Neut % (Auto) % Lymph % (Auto) % Grimes % (Auto) % Eos % (Auto) % Baso % (Auto) % Neut # (Auto) (1.40-6.50) K/uL Lymph # (Auto) (1.2-3.4) K/uL Grimes # (Auto) (0.11-0.59) K/uL Eos # (Auto) (0-0.50) K/uL Baso # (Auto) (0-0.2) K/uL Immature Gran # (Auto) (0.01-0.20) K/uL PT (9.0-12.0) Seconds INR (0.9-1.1) APTT (21.0-31.0) Seconds PTT Ratio Sodium (136-145) mmol/L Potassium (3.5-5.1) mmol/L Chloride (98-107) mmol/L Carbon Dioxide (21-32) mmol/L Anion Gap (3-11) BUN (6-23) mg/dl Creatinine (0.6-1.4) mg/dl Est Cr Clr Drug Dosing ml/min Est GFR ( Amer) ml/min Est GFR (Non-Af Amer) ml/min BUN/Creatinine Ratio (10-20) Glucose (70-99(Fasting)) mg/dl Calcium (8.6-10.3) mg/dl Total Creatine Kinase (30-223) U/L Troponin I High Sens (0-20) pg/ml Lipase (11-82) U/L SARS-CoV-2, RNA, NAAT NEGATIVE (NEGATIVE) Imaging Data Attestation: I personally reviewed and interpreted this imaging study as follows: My Impression: Chest x-ray negative. Airway clear. No pneumothorax. No consolidation. No cardiomegaly or cephalization.. No free air under the diaphragm. No fractures of the skeletal structures. Ultrasound: DVT present. Radiologist's Impression: Chest X-Ray 08/10/22 18:06 XR chest 1V portable CLINICAL HISTORY: Chest pain, nonspecific TECHNIQUE: Single frontal radiograph of the chest was obtained. Comparison: None available at the time of this dictation. FINDINGS: No lines and tubes are seen. The cardiomediastinal silhouette is normal. The lungs are clear. No evidence of pleural effusion or pneumothorax. IMPRESSION: No acute chest disease. ACT 112: Negative or not required by law. Electronically signed by: Rob Puente M.D. 08/10/2022 6:27 PM Chest CTA 08/10/22 18:07 CT angio chest PE protocol CLINICAL HISTORY: Chest Pain, eval for PE TECHNIQUE: Multidetector row helical CT of the chest was performed with angiographic protocol. Coronal and sagittal reformations were obtained. Coronal and sagittal MIPS were obtained from the axial data set and were submitted for review. Automated dose lowering techniques and/or adjustment according to patient size were utilized for this exam. CT DOSE: 902.30 mGy.cm Comparison: Comparison is made to CTA chest 05/08/2022 FINDINGS: Lungs and pleura: Normal. Heart and pericardium: Heart size is normal. No pericardial effusion. Vessels: Pulmonary emboli are seen in the left lower lobar artery and its branches as well as within the right middle and lower lobar arteries. Segmental and subsegmental emboli are also seen in the bilateral upper lobes. Mediastinum and maría: Unremarkable. Chest wall and lower neck: Unremarkable. Abdomen: Unremarkable. Bones: Unremarkable. IMPRESSION: Numerous pulmonary emboli are seen involving multiple lobar and segmental/s ubsegmental branches. No right heart strain is seen. ACT 112: Negative or not required by law. Electronically signed by: Rob Puente M.D. 08/10/2022 7:22 PM Venous Doppler Study 08/10/22 18:07 US venous doppler LE LT CLINICAL HISTORY: ro dvt TECHNIQUE: Left lower extremity real-time compression venous ultrasound with Color Doppler imaging. Utilizing real-time ultrasonic imaging multiple real time high-resolution ultrasonic images with compression and noncompression maneuvers of the deep venous system in addition to color doppler imaging were performed from the common femoral vein through the proximal calf veins. COMPARISON: None available at the time of this dictation. FINDINGS/IMPRESSION: Occlusive deep venous thrombus is seen in both peroneal veins. No other deep venous thrombus is seen. No superficial venous thrombosis is identified. ACT 112: Negative or not required by law. Electronically signed by: Rob Puente M.D. 08/10/2022 8:03 PM ECG Data Attestation: I personally reviewed and interpreted this ECG as follows: Indication: + palpitations Rate (beats per minute): 133 Rhythm: + normal sinus ECG Intervals/blocks: + Normal NE and + Normal QT-c ECG ST segments: + Normal ST segments Additional Comments: QRS 70 MDM Narrative 1800: The patient was evaluated in room C12. A complete history and physical exam was performed Cardiac monitoring: An order was placed for continuous cardiac monitoring. The monitor shows a rate of 130 with sinus tachycardia rhythm interpreted by me 2006: Patient remains tachycardic. Labs within normal limits however imaging does show numerous pulmonary emboli in the multiple lobar and segmental/subsegmental branches. Ultrasound also shows a DVT. The PEs are increased in number compared to his previous UTI in April 2022 when those PEs were thought to be due to his recent surgery. Patient has only been off of the Eliquis for 5 days. For this number of clots to form in 5 days is very surprising. On previous hospitalizations patient had no hypercoagulability work-up. Patient will be admitted on heparin drip to the [facility] hospitalist team for hypercoagulability work-up and possible echo. Impression & Plan Pulmonary emboli, DVT (deep venous thrombosis) Discharge Plan Visit Data Chief Complaint: Tachycardia Stated Complaint: HIGH HEART RATE,SOB,SORENESS IN LEFT LEG ED Provider: Tony Escobar Discharge Problem: Pulmonary emboli, DVT (deep venous thrombosis) Patient Disposition: Admitted As Inpatient Forms Stand Alone Forms: My [facility] Prescriptions Prescriptions: No Action desonide 0.05 % cream 1 applic TOPICAL UD PRN (Reason: ezcema) omeprazole magnesium [Prilosec OTC] 20 mg Tablet,Delayed Release (Dr/Ec) 20 mg PO QAM PRN (Reason: gerd) fluticasone propionate 50 mcg/actuation [place],Suspension 2 spray INTRANASAL DAILY PRN (Reason: Nasal Congestion) Rx Instructions: administer into each nostril Eliquis 5 mg tablet 5 mg PO BID Qty: 20 0RF trazodone 50 mg tablet 50 mg PO HS venlafaxine 150 mg capsule,extended release 24hr 150 mg PO QAM fluticasone propion-salmeterol [Advair Diskus] 250-50 mcg/dose Blister With Device 1 inh INHALATION BID cetirizine [Zyrtec] 10 mg Tablet 10 mg PO QAM montelukast [Singulair] 10 mg Tablet 10 mg PO QAM albuterol sulfate 90 mcg/actuation Hfa Aerosol Inhaler 2 puff INHALATION DIRECTED PRN (Reason: Shortness Of Breath Or Wheezing) cholecalciferol (vitamin D3) [Vitamin D3] 125 mcg (5,000 unit) Tablet 125 mcg PO QAM fluoxetine 10 mg capsule 10 mg PO QAM Referrals Referrals: Katelin Christianson CRNP [Primary Care Provider] -
[2022-08-10 18:26] LABS: Basophils # (auto) 0.03 K/uL (0-0.2); Basophils % (auto) 0.4 %; Eosinophils % (auto) 1.2 %; Hematocrit (blood only) 46.5 % (42.0-52.0); Hemoglobin 16.4 g/dl (14.0-18.0); Immature Granulocytes # (auto) 0.02 K/uL (0.01-0.20); Immature Granulocytes % (auto) 0.2 %; Lymphocytes # (auto) 1.52 K/uL (1.2-3.4); Lymphocytes % (auto) 18.6 %; Mean Corpuscular Hemoglobin 28.6 pg (25.0-34.0); Mean Corpuscular Hgb Conc 35.3 g/dL (32.0-36.0); Mean Platelet Volume 10.4 fL (9.4-12.4); Monocytes # (auto) 0.65 K/uL (0.11-0.59); Monocytes % (auto) 7.9 %; Neutrophils # (auto) 5.87 K/uL (1.40-6.50); Neutrophils % (auto) 71.7 %; Platelet Count 227 K/uL (130-400); RDW Coefficient of Variation 12.9 % (11.5-14.5); RDW Standard Deviation 37.7 fL (36.4-46.3); Red Blood Count 5.74 M/uL (4.70-6.10); White Blood Count 8.19 K/ul (4.8-10.8)
--- NOTE | 2022-08-10 18:28 | XRay Report ---
XR chest 1V portable CLINICAL HISTORY: Chest pain, nonspecific TECHNIQUE: Single frontal radiograph of the chest was obtained. Comparison: None available at the time of this dictation. FINDINGS: No lines and tubes are seen. The cardiomediastinal silhouette is normal. The lungs are clear. No evid ence of pleural effusion or pneumothorax. IMPRESSION: No acute chest disease. ACT 112: Negative or not required by law. Electronically signed by: Rob Puente M.D. 08/10/2022 6:27 PM
[2022-08-10 18:38] LABS: BUN Creatinine Ratio 9.8 (10-20); Calcium 9.8 mg/dl (8.6-10.3); Creatinine Clr Calc Pharmacy 106.5 ml/min; Est GFR (African American) 93.3 ml/min; Est GFR (Non-African American) 80.5 ml/min; Potassium 4.1 mmol/L (3.5-5.1)
[2022-08-10 18:45] LABS: Troponin I High Sensitivity 5.6 pg/ml (0-20)
[2022-08-10 18:55] LABS: INR 1.1 (0.9-1.1); Partial Thromboplastin Ratio 0.9; Partial Thromboplastin Time 24.2 Seconds (21.0-31.0); Prothrombin Time 11.6 Seconds (9.0-12.0)
[2022-08-10] MEDS ORDERED: OPTIRAY 320 500ml IV ONE (19:04)
--- NOTE | 2022-08-10 19:24 | CT Scan Report ---
CT angio chest PE protocol CLINICAL HISTORY: Chest Pain, eval for PE TECHNIQUE: Multidetector row helical CT of the chest was performed with angiographic protocol. Chew l and sagittal reformations were obtained. Coronal and sagittal MIPS were obtained from the axial skye a set and were submitted for review. Automated dose lowering techniques and/or adjustment according to patient size were utilized for this exam. CT DOSE: 902.30 mGy.cm Comparison: Comparison is made to CTA chest 05/08/2022 FINDINGS: Lungs and pleura: Normal. Heart and pericardium: Heart size is normal. No pericardial effusion. Vessels: Pulmonary emboli are seen in the left lower lobar artery and its branches as well as within the right middle and lower lobar arteries. Segmental and subsegmental emboli are also seen in the markos ateral upper lobes. Mediastinum and maría: Unremarkable. Chest wall and lower neck: Unremarkable. Abdomen: Unremarkable. Bones: Unremarkable. IMPRESSION: Numerous pulmonary emboli are seen involving multiple lobar and segmental/subsegmental branches. No r ight heart strain is seen. ACT 112: Negative or not required by law. Electronically signed by: Rob Puente M.D. 08/10/2022 7:22 PM
[2022-08-10] MEDS ORDERED: Heparin IV Adult Wt-Based Standard WITH Bolus Protocol IV STA (19:57)
--- NOTE | 2022-08-10 20:06 | Ultrasound Report ---
US venous doppler LE LT CLINICAL HISTORY: ro dvt TECHNIQUE: Left lower extremity real-time compression venous ultrasound with Color Doppler imaging. U tilizing real-time ultrasonic imaging multiple real time high-resolution ultrasonic images with compr ession and noncompression maneuvers of the deep venous system in addition to color doppler imaging we re performed from the common femoral vein through the proximal calf veins. COMPARISON: None available at the time of this dictation. FINDINGS/IMPRESSION: Occlusive deep venous thrombus is seen in both peroneal veins. No other deep venous thrombus is seen. No superficial venous thrombosis is identified. ACT 112: Negative or not required by law. Electronically signed by: Rob Puente M.D. 08/10/2022 8:03 PM
[2022-08-10] MEDS ORDERED: HEPARIN SOD (PORCINE) 1000 UNIT/ML IV ONE ×2 (20:12→20:30)
[2022-08-10] MEDS ORDERED: HEPARIN SODIUM/DEXTROSE 25,000 UNITS/500 ML BAG IV SCH (20:15)
--- NOTE | 2022-08-10 20:56 | History & Physical Report ---
Date of Service August 10, 2022 Assessment & Plan (1) Pulmonary emboli: Plan: 27yo Male with PMH hx. DVT, depression/anxiety here for SOB chest pain left leg pain found to have extensive PE and left leg DVT. Extensive PE and left leg DVT -hx. sickle cell trait -CTA chest: Numerous pulmonary emboli are seen involving multiple lobar and segmental/subsegmental branches. No right heart strain is seen. -Doppler left leg: Occlusive deep venous thrombus is seen in both peroneal veins. No other deep venous thrombus is seen. No superficial venous thrombosis is identified. -doing well on room air -hypercoagulability panel ordered (unfortunately did get some heparin before labs drawn, heparin drip on hold) -can start heparin drip after labs drawn -creat kinase elevated 230, trop wnl Depression Anxiety -continue venlafaxine, trazodone FENa: regular Code Status: full DVT PPX: will start heparin drip after labs are drawn Dispo: med/tele Rosemary Nair D.O. PGY 2, FCM (2) DVT (deep venous thrombosis): History of Present Illness Chief Complaint: SOB chest pain Primary Care Provider: LAURA Berman 27yo Male with PMH hx. DVT, depression/anxiety here for SOB chest pain left leg pain found to have extensive PE and left leg DVT. Patient was previously here 04/11 for right tibial stress fracture repaired by orthopeadics. on 05/08 he returned to the ED was found to have PE and right leg DVT, started on eliquis. He was on eliquis 5mg BID for 3 months, dosage ended last Thursday. On thursday he noted left knee pain that continued to worsen, Thursday came to ED had left knee xray was negative given toradol sent home, thursday knee pain continued he tried ibuprofen didn't help, today noted elevated heart rate mild SOB and chest pain came to ED, CTA chest notes extensive pulmonary embolism, doppler notes DVT in left leg. Patient was started briefly on heparin drip, which was stopped in order to draw hypercoagulability work up panels. Patient understands he may be on anticoagulation for an extended period of time after this visit. Of note he does have sickle cell trait. FH grandmother at age 85 was hospitalized for a blood clot, patient attributes this to her age. He is to f/u with orthopaedics for his right leg brace on 08/19 Allergies Allergy/AdvReac Type Severity Reaction Status Date / Time nickel Allergy Intermediate Rash Verified 08/10/22 18:54 pollen extracts Allergy Intermediate ITCHY Verified 08/10/22 18:54 EYES, SNEEZING, CONGESTION Home Medications Medication Instructions Recorded Confirmed Type albuterol sulfate 90 mcg/actuation 2 puff inhalation DIRECTED PRN 01/26/22 08/10/22 History aerosol inhaler Shortness Of Breath Or Wheezing cetirizine 10 mg tablet (Zyrtec) 10 mg PO QAM 01/26/22 08/10/22 History cholecalciferol (vitamin D3) 125 125 mcg PO QAM 01/26/22 08/10/22 History mcg (5,000 unit) tablet (Vitamin D3) fluticasone 250 mcg-salmeterol 50 1 inh inhalation BID 01/26/22 08/10/22 History mcg/dose blistr powdr for inhalation (Advair Diskus) montelukast 10 mg tablet 10 mg PO QAM 01/26/22 08/10/22 History (Singulair) desonide 0.05 % topical cream 1 applic topical UD PRN ezcema 03/31/22 08/10/22 History omeprazole magnesium 20 mg 20 mg PO QAM PRN gerd 03/31/22 08/10/22 History tablet,delayed release (Prilosec OTC) fluticasone propionate 50 2 spray intranasal DAILY PRN Nasal 05/08/22 08/10/22 History mcg/actuation nasal Congestion spray,suspension apixaban 5 mg tablet (Eliquis) 5 mg PO BID #20 tabs 05/09/22 08/10/22 Rx fluoxetine 10 mg capsule 10 mg PO QAM 07/17/22 08/10/22 History trazodone 50 mg tablet 50 mg PO HS 08/10/22 08/10/22 History venlafaxine 150 mg 150 mg PO QAM 08/10/22 08/10/22 History capsule,extended release 24 hr Past Med/Surg History Medical History Asthma excercise induced, uses inhaler prior to working out 4-5 times per week Environmental and seasonal allergies GERD (gastroesophageal reflux disease) Palpitations 07/2021- saw Isabella Alicja for "benign palpitations"; happens occasionally, "every few weeks or so" Sickle cell trait Sleep apnea cpap Surgical History Hx of wisdom tooth extraction No significant past surgical history Family History Other No family history of adverse response to anesthesia Social History Smoking Status: Never smoker Second Hand Exposure: No; Do You Dip or Chew Tobacco: No; Hx Alcohol Use: Yes Hx Substance Use: No Preferred Language: Azeri Communication Ability: Effective Chronic Manager Required: No Beliefs That Will Affect Care: None Current Living Situation: Other Current Living Situation Comment: Roommate Feels Safe at Home: Yes Gender Identity: Other Assistive Devices: CPAP and Glasses Physical Exam Constitutional: WD/WN, vitals as above Eyes: PERRL, conjunctivae normal, anicteric sclerae ENMT: external ear and nose normal, oropharynx normal Neck: trachea midline, no thyromegaly Respiratory: normal respiratory effort, lungs clear to auscultation Cardiovascular: RRR, no murmur, no edema Gastrointestinal (Abdomen): Inspection/Auscultation: abdomen normal to inspection Percussion/Palpation: abdomen soft; abdomen nontender Musculoskeletal: mild gonzales on palpation to left calf, pain for noticeable with leg dorsiflexion Skin: no rashes, warm and dry Results & Data Results & Data Vital Signs (Past 12 Hours) Vital Signs Temp Pulse Pulse Resp BP BP Pulse Ox 08/10/22 18:16 93 08/10/22 18:09 124 H 08/10/22 18:07 128 H 22 152/99 H 95 08/10/22 17:51 36.3 C L 140 H 18 141/81 H 95 O2 Del Method 08/10/22 18:16 Room Air 08/10/22 18:09 08/10/22 18:07 Room Air 08/10/22 17:51 Room Air Code Status & VTE Plan VTE Prophylaxis Plan VTE Prophylaxis will be ordered: Yes Resident Activity Tracking Resident Involvement: Resident Care Provided Care Provided: Adult Hospital Medicine (1) Pulmonary emboli Pulmonary embolism type: multiple subsegmental (without acute cor pulmonale) Qualified Code(s): I26.94 - Multiple subsegmental pulmonary emboli without acute cor pulmonale (2) DVT (deep venous thrombosis) Affected thrombotic vein of extremity: unspecified vein of extremity Senior Statistician nicity: acute DVT location: lower extremity Laterality: bilateral Qualified Code(s): I82.403 - Acute embolism and thrombosis of unspecified deep veins of lower extremity, bilateral
[2022-08-10] MEDS ORDERED: PANTOprazole 40 MG TAB PO PRN (20:57)
[2022-08-10] MEDS ORDERED: ALBUTEROL HFA 8 GM INHALER INH PRN (20:57)
[2022-08-10] MEDS ORDERED: traZODone HCL 50 MG TAB PO SCH (21:00)
[2022-08-11 02:56] LABS: Mean Corpuscular Hemoglobin 28.5 pg (25.0-34.0); Mean Corpuscular Hgb Conc 34.1 g/dL (32.0-36.0); Mean Corpuscular Volume 83.7 fL (80.0-100.0); Mean Platelet Volume 10.5 fL (9.4-12.4); Platelet Count 209 K/uL (130-400); RDW Coefficient of Variation 13.2 % (11.5-14.5); RDW Standard Deviation 40.4 fL (36.4-46.3); Red Blood Count 5.26 M/uL (4.70-6.10); White Blood Count 7.48 K/ul (4.8-10.8)
[2022-08-11 03:11] LABS: BUN Creatinine Ratio 8.5 (10-20); Calcium 9.4 mg/dl (8.6-10.3); Est GFR (African American) 98.1 ml/min; Est GFR (Non-African American) 84.7 ml/min; Potassium 3.8 mmol/L (3.5-5.1)
[2022-08-11 03:37] LABS: Partial Thromboplastin Ratio 1.6; Prothrombin Time 11.4 Seconds (9.0-12.0)
[2022-08-11 03:44] LABS: Partial Thromboplastin Time 44.5 Seconds (21.0-31.0)
[2022-08-11] MEDS: ACETAMINOPHEN 325 MG TAB PO PRN ×2 (03:47→08:56)
--- NOTE | 2022-08-11 08:39 | Electrocardiogram Report ---
Test Reason : Blood Pressure : / mmHG Vent. Rate : 133 BPM Atrial Rate : 133 BPM P-R Int : 134 ms QRS Dur : 070 ms QT Int : 282 ms P-R-T Axes : 059 059 -21 degrees QTc Int : 419 ms Sinus tachycardia Nonspecific ST abnormality Abnormal ECG When compared with ECG of 08-MAY-2022 09:12, Vent. rate has increased BY [address] no longer elevated in Anterior leads Confirmed by Elie Barney ([id number]) on 08/11/2022 8:38:35 AM Referred By: REFERRED SELF Confirmed By:Martin Barney
[2022-08-11] MEDS ORDERED: VENLAFAXINE HCL XR 150 MG CAPXR PO SCH (09:00)
[2022-08-11] MEDS ORDERED: FLUTICASONE/VILANTEROL 200/25MCG 14 PUFFS/INHALER INH SCH (09:00)
[2022-08-11] MEDS ORDERED: CHOLECALCIFEROL 5,000 UNITS 125 MCG TAB PO SCH (09:00)
[2022-08-11] MEDS ORDERED: CETIRIZINE HCL 10 MG TABLET PO SCH (09:00)
[2022-08-11] MEDS ORDERED: MONTELUKAST SODIUM 10 MG TABLET PO SCH (09:00)
[2022-08-11 09:28] LABS: Partial Thromboplastin Ratio 1.7; Partial Thromboplastin Time 46.7 Seconds (21.0-31.0)
--- NOTE | 2022-08-11 09:35 | Orthopedic Consultation ---
Date of Consultation August 11, 2022 Assessment & Plan (1) Acute pain of left knee: IMPRESSION: Left knee pain secondarily to patellar tendinosis with component of left lower leg pain due to recent DVT. PLAN: At this point he is too sensitive to utilize a patellar tendinitis strap with activities, but may add that in in the future. Will trial Lidoderm patches 12 hours on during the day and 12 hours off at night. Will trial nitroglycerin patches 12 hours on at night and 12 hours off during the day. May require crutches. PT/OT. Unfortunately is unable to utilize NSAIDs as he will be on Eliquis for a long time due to second episode of PE after recently stopping Eliquis. Continue care per primary service. Will continue to follow. Will keep his appointment in 2 weeks to assess how he is doing. Present on Admission?: Yes (2) History of open reduction and internal fixation (ORIF) procedure: IMPRESSION: 4 months status post ORIF right tibia stress fracture, pleased with his progress. PLAN: We will obtain x-rays AP and lateral of the right tib-fib. Continue progressing his weightbearing and plan to discontinue the boot over the next 2 to 4 weeks depending on his symptoms and x-rays. Present on Admission?: Yes History of Present Illness Reason for Consultation: Left knee pain Requesting Physician: Shahzad Simental MD Attending Physician: Jesus Thurman MD History of Present Illness Ale is a pleasant 27-year-old male, with sickle cell trait, who had previously undergone ORIF right tibia stress fracture 04/11/2022. He had developed right lower leg DVT and PE 05/08/2022, started on Eliquis. Carlos schumacher has been progressing his weight bearing and is full in the boot without pain and even without pain for short distances without the boot. He stopped using this 08/05/2022 and started developing left knee pain the next day that continued to worsen. He had x-rays performed Thursday while in the ED and was given Toradol for his pain. He notes his pain is anteriorly and has a sense of giving way. He attempted using ibuprofen which was not helpful. He return to the ED with mild SOB and chest pain and was found to have a left lower leg DVT on Dopplers and extensive pulmonary emboli with a CTA of his chest. He was admitted to the hospitalist service. Allergies Allergy/AdvReac Type Severity Reaction Status Date / Time nickel Allergy Intermediate Rash Verified 08/10/22 18:54 pollen extracts Allergy Intermediate ITCHY Verified 08/10/22 18:54 EYES, SNEEZING, CONGESTION Home Medications Medication Instructions Recorded Confirmed Type albuterol sulfate 90 mcg/actuation 2 puff inhalation DIRECTED PRN 01/26/22 History aerosol inhaler Shortness Of Breath Or Wheezing cetirizine 10 mg tablet (Zyrtec) 10 mg PO QAM 01/26/22 08/10/22 History cholecalciferol (vitamin D3) 125 125 mcg PO QAM 01/26/22 08/10/22 History mcg (5,000 unit) tablet (Vitamin D3) fluticasone 250 mcg-salmeterol 50 1 inh inhalation BID 01/26/22 08/10/22 History mcg/dose blistr powdr for inhalation (Advair Diskus) montelukast 10 mg tablet 10 mg PO QAM 01/26/22 08/10/22 History (Singulair) desonide 0.05 % topical cream 1 applic topical UD PRN ezcema 03/31/22 08/10/22 History omeprazole magnesium 20 mg 20 mg PO QAM PRN gerd 03/31/22 08/10/22 History tablet,delayed release (Prilosec OTC) fluticasone propionate 50 2 spray intranasal DAILY PRN Nasal 05/08/22 08/10/22 History mcg/actuation nasal Congestion spray,suspension apixaban 5 mg tablet (Eliquis) 5 mg PO BID #20 tabs 05/09/22 08/10/22 Rx fluoxetine 10 mg capsule 10 mg PO QAM 07/17/22 08/10/22 History trazodone 50 mg tablet 50 mg PO HS 08/10/22 08/10/22 History venlafaxine 150 mg 150 mg PO QAM 08/10/22 08/10/22 History capsule,extended release 24 hr Patient History Medical History Asthma excercise induced, uses inhaler prior to working out 4-5 times per week Environmental and seasonal allergies GERD (gastroesophageal reflux disease) Palpitations 07/2021- saw Isabella Helm for "benign palpitations"; happens occasionally, "every few weeks or so" Sickle cell trait Sleep apnea cpap Surgical History (Updated 08/11/22 @ 09:37 by Bogdan Simental MD) History of open reduction and internal fixation (ORIF) procedure Right Tibia Stress fracture Hx of wisdom tooth extraction Family History Other No family history of adverse response to anesthesia Social History Smoking Status: Never smoker Second Hand Exposure: No; Do You Dip or Chew Tobacco: No; Hx Alcohol Use: Yes Alcohol type: beer, wine and hard liquor Hx Substance Use: No Preferred Language: Hungarian Communication Ability: Effective Student Life Dean Required: No Beliefs That Will Affect Care: None Current Living Situation: Other Current Living Situation Comment: Lives with roommates in apartment Feels Safe at Home: Yes Safety Concerns: Feels Safe At This Time Gender Identity: Other Assistive Devices: Crutches and Special Shoe Assistive Devices Comment: R foot brace Review of Systems Review of Systems: All systems reviewed & are unremarkable except as noted in HPI & below Physical Exam Physical Exam: LLE: Neurovascularly intact. Sensation to light touch intact distally, 2+ DP pulse, gastrocsoleus, tibialis anterior, EHL 5/5. - Effusion. ++ Tenderness palpation inferior pole patella, along the entire length of his patellar tendon. Knee ROM 0-45 degrees. - Cornelio's. - Joint line tenderness. Ligamentous examination is limited secondarily to lack of full ROM. + Tenderness palpation about the calf but is otherwise soft. RLE: Neurovascularly intact. Incision is healing nicely, no evidence of infection. - Tenderness to percussion along the tibia. Results & Data Vital Signs (Past 12 Hours) Vital Signs Temp Pulse Pulse Resp BP BP Pulse Ox 08/11/22 07:45 36.7 C 72 19 108/70 94 08/11/22 06:01 81 08/11/22 05:40 87 08/11/22 03:24 37.6 C H 73 18 145/65 H 97 08/11/22 02:30 102 H 22 95 08/11/22 02:26 90 19 101/67 08/11/22 01:00 85 23 08/10/22 23:55 90 O2 Del Method 08/11/22 07:45 Room Air 08/11/22 06:01 08/11/22 05:40 08/11/22 03:24 Room Air 08/11/22 02:30 Room Air 08/11/22 02:26 08/11/22 01:00 08/10/22 23:55 Diagnostic Findings Laboratory Results WBC 7.48 K/ul (4.8-10.8) 08/11/22 02:33 RBC 5.26 M/uL (4.70-6.10) 08/11/22 02:33 Hgb 15.0 g/dl (14.0-18.0) 08/11/22 02:33 Hct 44.0 % (42.0-52.0) 08/11/22 02:33 MCV 83.7 fL (80.0-100.0) 08/11/22 02:33 MCH 28.5 pg (25.0-34.0) 08/11/22 02:33 MCHC 34.1 g/dL (32.0-36.0) 08/11/22 02:33 RDW Std Deviation 40.4 fL (36.4-46.3) 08/11/22 02:33 RDW Coeff of Lisbet 13.2 % (11.5-14.5) 08/11/22 02:33 Plt Count 209 K/uL (130-400) 08/11/22 02:33 MPV 10.5 fL (9.4-12.4) 08/11/22 02:33 Immature Gran % (Auto) 0.2 % 08/10/22 18:08 Neut % (Auto) 71.7 % 08/10/22 18:08 Lymph % (Auto) 18.6 % 08/10/22 18:08 [place] % (Auto) 7.9 % 08/10/22 18:08 Eos % (Auto) 1.2 % 08/10/22 18:08 Baso % (Auto) 0.4 % 08/10/22 18:08 Neut # (Auto) 5.87 K/uL (1.40-6.50) 08/10/22 18:08 Lymph # (Auto) 1.52 K/uL (1.2-3.4) 08/10/22 18:08 [place] # (Auto) 0.65 K/uL (0.11-0.59) H 08/10/22 18:08 Eos # (Auto) 0.10 K/uL (0-0.50) 08/10/22 18:08 Baso # (Auto) 0.03 K/uL (0-0.2) 08/10/22 18:08 Immature Gran # (Auto) 0.02 K/uL (0.01-0.20) 08/10/22 18:08 PT 11.4 Seconds (9.0-12.0) 08/11/22 02:33 INR 1.0 (0.9-1.1) 08/11/22 02:33 APTT 46.7 Seconds (21.0-31.0) H* 08/11/22 08:22 PTT Ratio 1.7 08/11/22 08:22 Sodium 138 mmol/L (136-145) 08/11/22 02:33 Potassium 3.8 mmol/L (3.5-5.1) 08/11/22 02:33 Chloride 105 mmol/L (98-107) 08/11/22 02:33 Carbon Dioxide 28 mmol/L (21-32) 08/11/22 02:33 Anion Gap 5 (3-11) 08/11/22 02:33 BUN 10 mg/dl (6-23) 08/11/22 02:33 Creatinine 1.18 mg/dl (0.6-1.4) 08/11/22 02:33 Est Cr Clr Drug Dosing 111.0 ml/min 08/11/22 02:33 Est GFR ( Amer) 98.1 ml/min 08/11/22 02:33 Est GFR (Non-Af Amer) 84.7 ml/min 08/11/22 02:33 BUN/Creatinine Ratio 8.5 (10-20) L 08/11/22 02:33 Glucose 92 mg/dl (70-99(Fasting)) 08/11/22 02:33 Calcium 9.4 mg/dl (8.6-10.3) 08/11/22 02:33 Total Creatine Kinase 230 U/L (30-223) H 08/10/22 18:08 Troponin I High Sens 5.6 pg/ml (0-20) 08/10/22 18:08 Lipase 34 U/L (11-82) 08/10/22 18:08 SARS-CoV-2, RNA, NAAT NEGATIVE (NEGATIVE) 08/10/22 18:17 Impressions Chest X-Ray 08/10/22 18:06 XR chest 1V portable CLINICAL HISTORY: Chest pain, nonspecific TECHNIQUE: Single frontal radiograph of the chest was obtained. Comparison: None available at the time of this dictation. FINDINGS: No lines and tubes are seen. The cardiomediastinal silhouette is normal. The lungs are clear. No evidence of pleural effusion or pneumothorax. IMPRESSION: No acute chest disease. ACT 112: Negative or not required by law. Electronically signed by: Rob Puente M.D. 08/10/2022 6:27 PM Chest CTA 08/10/22 18:07 CT angio chest PE protocol CLINICAL HISTORY: Chest Pain, eval for PE TECHNIQUE: Multidetector row helical CT of the chest was performed with angiographic protocol. Coronal and sagittal reformations were obtained. Coronal and sagittal MIPS were obtained from the axial data set and were submitted for review. Automated dose lowering techniques and/or adjustment according to patient size were utilized for this exam. CT DOSE: 902.30 mGy.cm Comparison: Comparison is made to CTA chest 05/08/2022 FINDINGS: Lungs and pleura: Normal. Heart and pericardium: Heart size is normal. No pericardial effusion. Vessels: Pulmonary emboli are seen in the left lower lobar artery and its branches as well as within the right middle and lower lobar arteries. Segmental and subsegmental emboli are also seen in the bilateral upper lobes. Mediastinum and maría: Unremarkable. Chest wall and lower neck: Unremarkable. Abdomen: Unremarkable. Bones: Unremarkable. IMPRESSION: Numerous pulmonary emboli are seen involving multiple lobar and segmental/subsegmental branches. No right heart strain is seen. ACT 112: Negative or not required by law. Electronically signed by: Rob Puente M.D. 08/10/2022 7:22 PM Venous Doppler Study 08/10/22 18:07 US venous doppler LE LT CLINICAL HISTORY: ro dvt TECHNIQUE: Left lower extremity real-time compression venous ultrasound with Color Doppler imaging. Utilizing real-time ultrasonic imaging multiple real time high-resolution ultrasonic images with compression and noncompression maneuvers of the deep venous system in addition to color doppler imaging were performed from the common femoral vein through the proximal calf veins. COMPARISON: None available at the time of this dictation. FINDINGS/IMPRESSION: Occlusive deep venous thrombus is seen in both peroneal veins. No other deep venous thrombus is seen. No superficial venous thrombosis is identified. ACT 112: Negative or not required by law. Electronically signed by: Rob Puente M.D. 08/10/2022 8:03 PM
[2022-08-11] MEDS ORDERED: FLUTICASONE PROPIONATE NA SPR 16 GM BTL SCH (09:45)
[2022-08-11] MEDS ORDERED: LIDOCAINE 5% 1 PATCH TD SCH (09:45)
--- NOTE | 2022-08-11 10:49 | XRay Report ---
RIGHT TIBIA AND FIBULA 2 VIEWS CLINICAL HISTORY: Postoperative examination. FINDINGS: AP and lateral views of the right tibia and fibula are compared to study dated 06/26/2022. A gain seen is evidence of osteotomy along the lateral cortex of the mid tibial shaft with overlying bu ttress plate fixation. The orthopedic hardware appears intact. No acute fracture is seen. The fibula is preserved. There is mild overlying soft tissue edema. The knee and ankle joints are grossly mainta ined. Question tiny foci of soft tissue gas medially. IMPRESSION: 1. There is unchanged postsurgical appearance of the right tibial shaft as detailed above. 2. No acute fracture seen. 3. Question tiny foci of soft tissue gas versus artifact medial to the tibial shaft. Correlate clinic all. Electronically signed by: Nick Lambert M.D. 08/11/2022 10:48 AM
--- NOTE | 2022-08-11 11:13 | Discharge Summary ---
Date of Service August 11, 2022 Admission HPI Per Admitting Provider 27yo Male with PMH hx. DVT, depression/anxiety here for SOB chest pain left leg pain found to have extensive PE and left leg DVT. Patient was previously here 04/11 for right tibial stress fracture repaired by orthopeadics. on 05/08 he returned to the ED was found to have PE and right leg DVT, started on eliquis. He was on eliquis 5mg BID for 3 months, dosage ended last Thursday. On thursday he noted left knee pain that continued to worsen, Thursday came to ED had left knee xray was negative given toradol sent home, thursday knee pain continued he tried ibuprofen didn't help, today noted elevated heart rate mild SOB and chest pain came to ED, CTA chest notes extensive pulmonary embolism, doppler notes DVT in left leg. Patient was started briefly on heparin drip, which was stopped in order to draw hypercoagulability work up panels. Patient understands he may be on anticoagulation for an extended period of time after this visit. Of note he does have sickle cell trait. FH grandmother at age 85 was hospitalized for a blood clot, patient attributes this to her age. He is to f/u with orthopaedics for his right leg brace on 08/19 Principal Diagnosis Left leg DVT, multiple bilateral pulmonary emboli Discharge Exam General-alert and oriented x3, no fevers, no chills HEENT-head atraumatic and normocephalic, pupils equal and reactive to light, extraocular muscles intact Neck-no lymphadenopathy or thyromegaly, trachea midline Chest-clear to auscultation percussion. No rales wheezing or rhonchi Cardiac-regular rate and rhythm, normal S1 and S2 Abdomen-normal bowel sounds, nontender, no hepatosplenomegaly Extremities-no cyanosis, clubbing, or edema Neuro-cranial nerves II through XII intact, motor and sensory function within normal limits, strength symmetrical , no focal deficits Psych-normal affect, normal mood Discharge Data Allergies Allergy/AdvReac Type Severity Reaction Status Date / Time nickel Allergy Intermediate Rash Verified 08/10/22 18:54 pollen extracts Allergy Intermediate ITCHY Verified 08/10/22 18:54 EYES, SNEEZING, CONGESTION Consultations 08/10/22 19:58 ED Decision to Admit Stat 08/10/22 21:49 Consult Orthopedic Surgery Routine Ordered Studies 08/10/22 18:07 CT angio chest PE protocol Stat US venous doppler LE LT Stat Hospital Course (1) Pulmonary emboli: Bilateral. No respiratory failure. Treated with heparin infusion while hospitalized. Transitioned to Xarelto 15 mg twice a day at discharge (2) DVT (deep venous thrombosis): Left lower extremity DVT involving both peroneal veins. (3) Sickle cell trait: Stable. Outpatient follow-up Plan Heparin drip transitioned to Xarelto 15 mg twice a day for 3 weeks then he will be switched to 20 mg daily going forward by his PCP. Home today, August 11 Total Time Total Time Spent Total Time Spent (In Minutes): 40 minutes Discharge Plan Discharge Items Patient Disposition: Home - Self-Care Reason For Visit: SOB LEG PAIN Discharge Diagnosis: Left lower extremity DVT, multiple bilateral pulmonary emboli Activity: As commented below Activity Comment: Avoid overexertion Non-emergency contact: Primary Care Provider Call non-emergency contact if: you have any medication questions and your symptoms worsen Follow-up/Referrals: Katelin Christianson CRNP [Primary Care Provider] - Diet: Regular Addtl Attending Provider Instructions: Take Xarelto 15 mg twice daily for 3 weeks and then your PCP will transition you to Xarelto 20 mg once a day thereafter. Xarelto replaces Eliquis Pending Studies at Discharge: Yes Studies:: Hypercoagulable lab studies Stand-Alone Forms: My [employer], Smoking Cessation Medications and DC Order Prescriptions: New Xarelto 15 mg Tablet 15 mg PO BID Qty: 42 0RF Continued desonide 0.05 % cream 1 applic TOPICAL UD PRN (Reason: ezcema) omeprazole magnesium [Prilosec OTC] 20 mg Tablet,Delayed Release (Dr/Ec) 20 mg PO QAM PRN (Reason: gerd) fluticasone propionate 50 mcg/actuation White,Suspension 2 spray INTRANASAL DAILY PRN (Reason: Nasal Congestion) Rx Instructions: administer into each nostril trazodone 50 mg tablet 50 mg PO HS venlafaxine 150 mg capsule,extended release 24hr 150 mg PO QAM fluticasone propion-salmeterol [Advair Diskus] 250-50 mcg/dose Blister With Device 1 inh INHALATION BID cetirizine [Zyrtec] 10 mg Tablet 10 mg PO QAM montelukast [Singulair] 10 mg Tablet 10 mg PO QAM albuterol sulfate 90 mcg/actuation Hfa Aerosol Inhaler 2 puff INHALATION DIRECTED PRN (Reason: Shortness Of Breath Or Wheezing) cholecalciferol (vitamin D3) [Vitamin D3] 125 mcg (5,000 unit) Tablet 125 mcg PO QAM fluoxetine 10 mg capsule 10 mg PO QAM Discontinued Eliquis 5 mg tablet 5 mg PO BID Qty: 20 0RF Discharge Orders: Discharge Order (Routine); Ordered 08/11/22 Ordered By: Jesus Thurman Admission Data Admit Date/Time: 08/10/22 20:45 Attending Provider: Jesus Thurman Admit Provider: Rosemary Nair Primary Care Provider: Katelin Christianson Other Providers: Cristiano Jara ; Bogdan Simental Coding Level of Care Code 97050 INP/OBS DISCH >30 MIN Diagnoses Pulmonary emboli I26.94 Pulmonary embolism type: multiple subsegmental (without acute cor pulmonale) DVT (deep venous thrombosis) I82.403 Affected thrombotic vein of extremity: unspecified vein of extremity Chronicity: acute DVT location: lower extremity Laterality: bilateral Sickle cell trait D57.3
[2022-08-11] MEDS ORDERED: RIVAROXABAN 15 MG TAB PO SCH (11:15)
[2022-08-11] MEDS ORDERED: NITROGLYCERIN 0.4 MG/HR PATCH TD SCH (19:00)
== END 2022-08-11 12:25 | disposition home or self-care (01) | DRG 299 ==
LOC: ED 17:50 → EDINP 20:45 → SUATTDRO 20:45 → EDINP 20:52 → 2N 08-11 03:23

== ENCOUNTER 2022-10-02 22:43 | Observation (INO) ==
[2022-10-02 23:33] LABS: Basophils # (auto) 0.04 K/uL (0-0.2); Basophils % (auto) 0.5 %; Eosinophils # (auto) 0.21 K/uL (0-0.50); Eosinophils % (auto) 2.9 %; Hematocrit (blood only) 47.5 % (42.0-52.0); Hemoglobin 16.8 g/dl (14.0-18.0); Immature Granulocytes # (auto) 0.04 K/uL (0.01-0.20); Immature Granulocytes % (auto) 0.5 %; Lymphocytes # (auto) 1.97 K/uL (1.2-3.4); Mean Corpuscular Hemoglobin 28.9 pg (25.0-34.0); Mean Corpuscular Hgb Conc 35.4 g/dL (32.0-36.0); Mean Corpuscular Volume 81.6 fL (80.0-100.0); Mean Platelet Volume 10.5 fL (9.4-12.4); Monocytes # (auto) 0.82 K/uL (0.11-0.59); Monocytes % (auto) 11.2 %; Neutrophils # (auto) 4.22 K/uL (1.40-6.50); Neutrophils % (auto) 57.9 %; Platelet Count 245 K/uL (130-400); RDW Coefficient of Variation 13.6 % (11.5-14.5); RDW Standard Deviation 39.7 fL (36.4-46.3); Red Blood Count 5.82 M/uL (4.70-6.10)
[2022-10-02 23:48] LABS: Albumin Globulin Ratio 1.2 (0.9-2); Albumin Level 4.6 gm/dl (3.4-5.0); BUN Creatinine Ratio 9.3 (10-20); Bilirubin,Total 1.2 mg/dl (0.2-1.0); Calcium 10.1 mg/dl (8.6-10.3); Creatinine Clr Calc Pharmacy 120.7 ml/min; Est GFR (African American) 98.1 ml/min; Est GFR (Non-African American) 84.7 ml/min; Globulin 3.8 gm/dl (2.5-4.0); Magnesium 1.7 mg/dl (1.7-2.4); Total Protein 8.4 gm/dl (6.0-8.3)
[2022-10-03 00:29] LABS: Troponin I High Sensitivity 7.6 pg/ml (0-20)
[2022-10-03 01:36] LABS: INR 1.2 (0.9-1.1); Partial Thromboplastin Ratio 1.2; Partial Thromboplastin Time 32.7 Seconds (21.0-31.0)
--- NOTE | 2022-10-03 01:41 | History & Physical Report ---
Date of Service October 03, 2022 Assessment & Plan (1) PVC (premature ventricular contraction): Plan: 27yo Male with PMH DVT with PE on xarelto, sickle cell trait, depression asthma here for palpitations tachycardia. Palpitations with PVCs -Mag 1.7, repleted with 2g Mg -admit to PCU/tele obs -consult placed to cardiology -ordered echo Hx. DVT PE sickle cell trait -continue xarelto -noted protein S deficiency, no factor V mutation noted Concern Claudication -ordered arterial dopplers Right lower leg pain -ordered R leg XR Depression -continue lexapro FENa: regular Code Status: Full DVT PPX: xarelto Dispo: PCU/tele Rosemary Nair D.O. PGY 3, FCM (2) Protein S deficiency: (3) DVT (deep venous thrombosis): (4) Pulmonary emboli: History of Present Illness Chief Complaint: Tachycardia Primary Care Provider: LAURA Berman 27yo Male with PMH DVT with PE on xarelto, depression sickle cell trait, asthma here for palpitations tachycardia. Yesterday patient had pain in left knee, went to physical therapy however pain continued to worsen he was concerned for blood clot so came to ED. In ED US leg revealed nonocclusive DVT that was present in July, CTA chest revealed PE from july has largely resolved. Patient's left knee pain resolved with tylenol, sent home. Last night patient was laying in bed when he developed palpitations, states occasional palpitations are normal for him but these persisted, his apple watch said he had atrial fibrillation so he returned to ED. ED telemetry noted frequent PVCs and some concern Vtach. At this time patient describes ongoing palpitations, some SOB with exertion, denies fever headache dizziness SOB at rest nausea pain. Patient states his information assistant recently ordered V/Q scan, chest XR, and echo to further workup of his chronic cough. Echo is currently scheduled later with geoff, patient wonders if it can be done in hospital. Allergies Allergy/AdvReac Type Severity Reaction Status Date / Time nickel Allergy Intermediate Rash Verified 09/17/22 12:54 pollen extracts Allergy Intermediate ITCHY Verified 09/17/22 12:54 EYES, SNEEZING, CONGESTION animal dander Allergy Uncoded 09/17/22 12:54 dust Allergy Uncoded 09/17/22 12:54 Home Medications Medication Instructions Recorded Confirmed Type albuterol sulfate 90 mcg/actuation 2 puff inhalation DIRECTED PRN 01/26/22 09/17/22 History aerosol inhaler Shortness Of Breath Or Wheezing cetirizine 10 mg tablet (Zyrtec) 10 mg PO QAM 01/26/22 09/17/22 History cholecalciferol (vitamin D3) 125 125 mcg PO QAM 01/26/22 09/17/22 History mcg (5,000 unit) tablet (Vitamin D3) fluticasone 250 mcg-salmeterol 50 1 inh inhalation BID 01/26/22 09/17/22 History mcg/dose blistr powdr for inhalation (Advair Diskus) montelukast 10 mg tablet 10 mg PO QAM 01/26/22 09/17/22 History (Singulair) desonide 0.05 % topical cream 1 applic topical UD PRN ezcema 03/31/22 09/17/22 History omeprazole magnesium 20 mg 20 mg PO QAM PRN gerd 03/31/22 09/17/22 History tablet,delayed release (Prilosec OTC) fluticasone propionate 50 2 spray intranasal DAILY PRN Nasal 05/08/22 09/17/22 History mcg/actuation nasal Congestion spray,suspension escitalopram oxalate [Lexapro] PO 09/17/22 09/17/22 History magnesium oxide 400 mg PO BID #60 caps 10/04/22 Rx metoprolol tartrate 50 mg tablet 50 mg PO BID #60 tabs 10/04/22 Rx rivaroxaban 20 mg tablet (Xarelto) 20 mg PO QDD #30 tabs 10/04/22 Rx Past Med/Surg History Medical History Asthma excercise induced, uses inhaler prior to working out 4-5 times per week Environmental and seasonal allergies GERD (gastroesophageal reflux disease) Palpitations 07/2021- saw Isabella Helm for "benign palpitations"; happens occasionally, "every few weeks or so" Sickle cell trait Sleep apnea cpap Surgical History History of open reduction and internal fixation (ORIF) procedure Right Tibia Stress fracture Hx of wisdom tooth extraction Family History Other No family history of adverse response to anesthesia Social History Smoking Status: Never smoker Second Hand Exposure: No; Do You Dip or Chew Tobacco: No; Hx Alcohol Use: Yes Alcohol type: beer, wine and hard liquor Hx Substance Use: No Preferred Language: Malaysian Communication Ability: Effective Piano Regulator Inspector Required: No Beliefs That Will Affect Care: None Current Living Situation: Alone Current Living Situation Comment: Lives in apartment with roomate Feels Safe at Home: Yes Gender Identity: Other Assistive Devices: None Physical Exam Constitutional: WD/WN, vitals as above Eyes: PERRL, conjunctivae normal, anicteric sclerae ENMT: external ear and nose normal, oropharynx normal Neck: trachea midline, no thyromegaly Respiratory: normal respiratory effort, lungs clear to auscultation Cardiovascular: Rate/Rhythm: + tachycardic Extremities: no edema Skin: no rashes, warm and dry Results & Data Results & Data Vital Signs (Past 12 Hours) Vital Signs Temp Pulse Pulse Resp BP BP Pulse Ox 10/03/22 01:00 101 H 20 125/81 95 10/02/22 23:35 107 H 10/02/22 23:14 122 H 10/02/22 23:08 115 H 10/02/22 23:11 94 10/02/22 23:09 36.8 C 103 H 18 156/108 H 94 10/02/22 22:44 36.7 C 86 18 136/101 H 95 O2 Del Method 10/03/22 01:00 Room Air 10/02/22 23:35 10/02/22 23:14 10/02/22 23:08 10/02/22 23:11 Room Air 10/02/22 23:09 Room Air 10/02/22 22:44 Room Air Code Status & VTE Plan VTE Prophylaxis Plan VTE Prophylaxis will be ordered: Yes Supervising Physician Co-Signing Physician Notes attending addendum: I have physically seen this patient, have supervised the medical residents activities, and agree with the H&P unless as otherwise noted. Assessment and Plan: Palpitations/PVCs/dizziness- The patient will be admitted to telemetry for serial cardiac enzymes, serial EKG's, cardiac rhythm monitoring and a 2-D echocardiogram with Dopplers. Concern regarding possible more significant arrhythmia such as V. tach Magnesium 1.7, give 2 g mag IV to reach goal of 2 Follow serial BMP and magnesium levels DVT/PE/sickle cell trait/protein S deficiency- Continuing Xarelto Left leg discomfort likely associated with residual DVT in that location Claudication- Patient reports numbness in both feet after running for about 3 miles Order lower extremity arterial Dopplers Right lower extremity pain/history of stress fracture with codie in place Concern regarding possible arterial insufficiency and/or aggravation of stress fracture Order x-rays and arterial Dopplers as noted Depression- Continue Lexapro Remaining orders and notations as noted attempted Resident Activity Tracking Resident Involvement: Resident Care Provided Care Provided: Adult Hospital Medicine (3) DVT (deep venous thrombosis) Affected thrombotic vein of extremity: peroneal Chronicity: chronic DVT location: lower extremity Laterality: left Qualified Code(s): I82.552 - 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
[2022-10-03] MEDS ORDERED: ACETAMINOPHEN 325 MG TAB PO PRN (02:21)
[2022-10-03] MEDS ORDERED: POLYETHYLENE (MIRALAX) 17 GM PACK PO PRN (02:21)
[2022-10-03] MEDS: MAGNESIUM SULFATE / D5W 1 GM/100 ML BAG IV SCH ×2 (03:58→05:30)
--- NOTE | 2022-10-03 04:04 | Emergency Department Note ---
Impression & Plan Cardiac dysrhythmia, Hypomagnesemia Admit to the [facility] ED Provider Note NAME: JER GAGNON AGE: 27 SEX: M ARRIVES VIA: Walk-In INFORMANT: Patient ED PROVIDER(S): Iqra Marie DO CHIEF COMPLAINT: Palpitations PLAN: Disposition: Admit to the [facility] Condition: Guarded MEDICAL DECISION MAKING: This is a 27-year-old male patient who presents to the emergency department with palpitations. The patient had been seen here yesterday for concern for recurrent DVT or PE. He had a complete work-up at that time which was negative. While he was here in the ER, the patient began to have episodes of palpitations but did not mention them to the provider. Upon arriving at home, he had increased episodes of palpitations. He noticed some tonight while trying to lie down and became more concerned. He has had these palpitations before and previous cardiac work-ups which have been negative. Laboratory studies here revealed no leukocytosis or anemia. Potassium was normal. Magnesium was slightly low. Troponin was normal. EKG was concerning for cardiac dysrhythmia-ventricular tachycardia versus a run of PVCs with a junctional escape complexes. Triage Nursing notes reviewed and agree with them. Vital Signs: reviewed and remarkable for tachycardia Differential diagnosis: Ventricular tachycardia, frequent PVCs with junctional escape rhythm, recurrent PE, electrolyte abnormality ER treatment provided: Cardiac monitoring Twelve-lead EKG Magnesium replacement-ordered by the admitting team Diagnostics interpreted by me: ECG: Sinus tachycardia at a rate of 102 with frequent PVCs that were consecutive that presented with junctional escape complexes. Cardiac Monitoring: Sinus tachycardia at a rate of 103 Laboratory studies: See below Imaging studies: As per my independent interpretation Portable chest x-ray: Elevated right hemidiaphragm; no acute pulmonary infiltrates or consolidation HPI: 27/M arrives for evaluation of palpitations. Patient developed palpitat ions earlier this morning while he was here in the emergency department being evaluated for possible recurrent PE/DVT. There is increasing frequency. He was unable to lay down tonight because of the discomfort in his chest secondary to the palpitations. PAST MEDICAL HISTORY:See Below PAST SURGICAL HISTORY:See Below FAMILY HISTORY:See Below SOCIAL HISTORY:See Below HOME MEDICATIONS:See list ALLERGIES:See list VITALS:See Below PHYSICAL EXAMINATION: HEENT: Head - normocephalic and atraumatic. Pupils are equal, round, and reactive to light. Extraocular eye muscles are intact, and sclera are anicteric. Nose - moist nasal mucosa without discharge. Mouth - moist buccal mucosa. Oropharynx is nonerythematous and there is no tonsillar exudate or edema noted. Neck: Supple; no JVD, nuchal rigidity, cervical lymphadenopathy, or auscultated bruits. Heart: Irregular rhythm with a tachycardic rate there is a normal S1 and S2 with no murmurs, clicks, or gallops appreciated. Lungs: Clear to auscultation bilaterally with no wheezes, rales, or rhonchi. Abdomen: Soft, completely nontender, nondistended, with good bowel sounds. There are no palpable pulsatile masses or hepatosplenomegaly. There is no guarding, rigidity, or rebound noted. Extremities: No evidence of cyanosis, clubbing, or edema. There are easily palpable peripheral pulses. Skin: warm and dry with good turgor and no rashes. ED COURSE: Patient was evaluated in room C9. A complete history and physical was performed. An IV lock was initiated and labs were drawn as above. An order was placed for continuous cardiac monitoring. The patient was in a sinus tachycardia at a rate of 103. A twelve-lead EKG was obtained as described above. The code cart was brought to the room as the patient was having frequent runs of PVCs concerning for ventricular tachycardia. I remained at the bedside for some time due to the concern for this cardiac dysrhythmia. We analyzed multiple rhythm strips as well as a twelve-lead EKG. 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 I discussed the case with the [facility] Hospitalist and they will evaluate for further management. I have personally spent greater than 30 minutes of critical care time in the direct management of this patient. This includes bedside care, interpretation of diagnostic studies, and testing, discussion with consultants, patient, and family members, and other required patient management activities. This 30 minutes is in excess of all separately billable procedures. Iqra Marie DO Past Med/Surg History Medical History Asthma excercise induced, uses inhaler prior to working out 4-5 times per week Environmental and seasonal allergies GERD (gastroesophageal reflux disease) Palpitations 07/2021- saw Isabella Helm for "benign palpitations"; happens occasionally, "every few weeks or so" Sickle cell trait Sleep apnea cpap Surgical History History of open reduction and internal fixation (ORIF) procedure Right Tibia Stress fracture Hx of wisdom tooth extraction Family History Other No family history of adverse response to anesthesia Social History Smoking Status: Never smoker Second Hand Exposure: No; Do You Dip or Chew Tobacco: No; Hx Alcohol Use: Yes Alcohol type: beer, wine and hard liquor Hx Substance Use: No Preferred Language: Romanian Communication Ability: Effective Bulk Receiver Required: No Beliefs That Will Affect Care: None Current Living Situation: Alone Current Living Situation Comment: Lives in apartment with roomate Other Information That Helps Us Care for You: No Feels Safe at Home: Yes Safety Concerns: Feels Safe At This Time Gender Identity: Other Assistive Devices: Crutches Allergies Allergies Allergy/AdvReac Type Severity Reaction Status Date / Time nickel Allergy Intermediate Rash Verified 09/17/22 12:54 pollen extracts Allergy Intermediate ITCHY Verified 09/17/22 12:54 EYES, SNEEZING, CONGESTION animal dander Allergy Uncoded 09/17/22 12:54 dust Allergy Uncoded 09/17/22 12:54 Home Meds Home Medications Medication Instructions Recorded Confirmed albuterol sulfate 90 mcg/actuation 2 puff inhalation DIRECTED PRN 01/26/22 09/17/22 aerosol inhaler Shortness Of Breath Or Wheezing cetirizine 10 mg tablet (Zyrtec) 10 mg PO QAM 01/26/22 09/17/22 cholecalciferol (vitamin D3) 125 125 mcg PO QAM 01/26/22 09/17/22 mcg (5,000 unit) tablet (Vitamin D3) fluticasone 250 mcg-salmeterol 50 1 inh inhalation BID 01/26/22 09/17/22 mcg/dose blistr powdr for inhalation (Advair Diskus) montelukast 10 mg tablet 10 mg PO QAM 01/26/22 09/17/22 (Singulair) desonide 0.05 % topical cream 1 applic topical UD PRN ezcema 03/31/22 09/17/22 omeprazole magnesium 20 mg 20 mg PO QAM PRN gerd 03/31/22 09/17/22 tablet,delayed release (Prilosec OTC) fluticasone propionate 50 2 spray intranasal DAILY PRN Nasal 05/08/22 09/17/22 mcg/actuation nasal Congestion spray,suspension escitalopram oxalate [Lexapro] PO 09/17/22 09/17/22 Previous Rx's Medication Instructions Recorded rivaroxaban 15 mg tablet (Xarelto) 15 mg PO BID #42 tabs 08/11/22 Results & Data (ED) Vital Signs Vital Signs - 24 hr 10/02/22 22:44 10/02/22 23:09 10/02/22 23:11 Temperature 36.7 C 36.8 C Temperature Source Temporal Artery Scan Oral Pulse Rate 86 Pulse Rate [Right Finger] 103 H Pulse Rhythm [Right Finger] Irregular Pulse Strength [Right Finger] Normal Respiratory Rate 18 18 Respiratory Effort / Characteristics Non-Labored Spontaneous Non-Labored Spontaneous Respiratory Depth Normal Normal Respiratory Pattern Regular Blood Pressure 136/101 H Blood Pressure [Right Arm] 156/108 H Blood Pressure Mean 112 Blood Pressure Mean [Right Arm] 124 Blood Pressure Position [Right Arm] Sitting Pulse Oximetry 95 94 94 Oxygen Delivery Method Room Air Room Air Room Air Sepsis Recent Fever Within 48 Hours No Sepsis New/Unexplained Change in Mental Status No Sepsis Action Taken by Nursing No Action Required 10/02/22 23:08 10/02/22 23:14 10/02/22 23:35 Temperature Temperature Source Pulse Rate 115 H 122 H 107 H Pulse Rate [Right Finger] Pulse Rhythm [Right Finger] Pulse Strength [Right Finger] Respiratory Rate Respiratory Effort / Characteristics Respiratory Depth Respiratory Pattern Blood Pressure Blood Pressure [Right Arm] Blood Pressure Mean Blood Pressure Mean [Right Arm] Blood Pressure Position [Right Arm] Pulse Oximetry Oxygen Delivery Method Sepsis Recent Fever Within 48 Hours Sepsis New/Unexplained Change in Mental Status Sepsis Action Taken by Nursing 10/03/22 01:00 Temperature Temperature Source Pulse Rate Pulse Rate [Right Finger] 101 H Pulse Rhythm [Right Finger] Irregular Pulse Strength [Right Finger] Respiratory Rate 20 Respiratory Effort / Characteristics Respiratory Depth Respiratory Pattern Blood Pressure Blood Pressure [Right Arm] 125/81 Blood Pressure Mean Blood Pressure Mean [Right Arm] 95 Blood Pressure Position [Right Arm] Pulse Oximetry 95 Oxygen Delivery Method Room Air Sepsis Recent Fever Within 48 Hours Sepsis New/Unexplained Change in Mental Status Sepsis Action Taken by Nursing Laboratory Data 10/02/22 23:00 10/02/22 23:00 Lab Results 10/02/22 10/02/22 10/02/22 Range/Units 23:00 23:00 23:00 WBC 7.30 (4.8-10.8) K/ul RBC 5.82 (4.70-6.10) M/uL Hgb 16.8 (14.0-18.0) g/dl Hct 47.5 (42.0-52.0) % MCV 81.6 (80.0-100.0) fL MCH 28.9 (25.0-34.0) pg MCHC 35.4 (32.0-36.0) g/dL RDW Std Deviation 39.7 (36.4-46.3) fL RDW Coeff of Lisbet 13.6 (11.5-14.5) % Plt Count 245 (130-400) K/uL MPV 10.5 (9.4-12.4) fL Immature Gran % (Auto) 0.5 % Neut % (Auto) 57.9 % Lymph % (Auto) 27.0 % [place] % (Auto) 11.2 % Eos % (Auto) 2.9 % Baso % (Auto) 0.5 % Neut # (Auto) 4.22 (1.40-6.50) K/uL Lymph # (Auto) 1.97 (1.2-3.4) K/uL [place] # (Auto) 0.82 H (0.11-0.59) K/uL Eos # (Auto) 0.21 (0-0.50) K/uL Baso # (Auto) 0.04 (0-0.2) K/uL Immature Gran # (Auto) 0.04 (0.01-0.20) K/uL PT Cancelled INR Cancelled APTT Cancelled PTT Ratio Cancelled Sodium 138 (136-145) mmol/L Potassium 4.0 (3.5-5.1) mmol/L Chloride 102 (98-107) mmol/L Carbon Dioxide 27 (21-32) mmol/L Anion Gap 9 (3-11) BUN 11 (6-23) mg/dl Creatinine 1.18 (0.6-1.4) mg/dl Est Cr Clr Drug Dosing 120.7 ml/min Est GFR ( Amer) 98.1 ml/min Est GFR (Non-Af Amer) 84.7 ml/min BUN/Creatinine Ratio 9.3 L (10-20) Glucose 89 (70-99(Fasting)) mg/dl Calcium 10.1 (8.6-10.3) mg/dl Magnesium 1.7 (1.7-2.4) mg/dl Total Bilirubin 1.2 H D (0.2-1.0) mg/dl AST 30 (13-39) U/L ALT 32 (7-52) U/L Alkaline Phosphatase 63 (34-104) U/L Troponin I High Sens 7.6 (0-20) pg/ml Total Protein 8.4 H (6.0-8.3) gm/dl Albumin 4.6 (3.4-5.0) gm/dl Globulin 3.8 (2.5-4.0) gm/dl Albumin/Globulin Ratio 1.2 (0.9-2) TSH (0.300-4.500) uIu/ml SARS-CoV-2, RNA, NAAT (NEGATIVE) 10/02/22 10/03/22 10/03/22 Range/Units 23:00 00:51 00:55 WBC (4.8-10.8) K/ul RBC (4.70-6.10) M/uL Hgb (14.0-18.0) g/dl Hct (42.0-52.0) % MCV (80.0-100.0) fL MCH (25.0-34.0) pg MCHC (32.0-36.0) g/dL RDW Std Deviation (36.4-46.3) fL RDW Coeff of Lisbet (11.5-14.5) % Plt Count (130-400) K/uL MPV (9.4-12.4) fL Immature Gran % (Auto) % Neut % (Auto) % Lymph % (Auto) % [place] % (Auto) % Eos % (Auto) % Baso % (Auto) % Neut # (Auto) (1.40-6.50) K/uL Lymph # (Auto) (1.2-3.4) K/uL [place] # (Auto) (0.11-0.59) K/uL Eos # (Auto) (0-0.50) K/uL Baso # (Auto) (0-0.2) K/uL Immature Gran # (Auto) (0.01-0.20) K/uL PT 13.0 H INR 1.2 H APTT 32.7 H PTT Ratio 1.2 Sodium (136-145) mmol/L Potassium (3.5-5.1) mmol/L Chloride (98-107) mmol/L Carbon Dioxide (21-32) mmol/L Anion Gap (3-11) BUN (6-23) mg/dl Creatinine (0.6-1.4) mg/dl Est Cr Clr Drug Dosing ml/min Est GFR ( Amer) ml/min Est GFR (Non-Af Amer) ml/min BUN/Creatinine Ratio (10-20) Glucose (70-99(Fasting)) mg/dl Calcium (8.6-10.3) mg/dl Magnesium (1.7-2.4) mg/dl Total Bilirubin (0.2-1.0) mg/dl AST (13-39) U/L ALT (7-52) U/L Alkaline Phosphatase (34-104) U/L Troponin I High Sens (0-20) pg/ml Total Protein (6.0-8.3) gm/dl Albumin (3.4-5.0) gm/dl Globulin (2.5-4.0) gm/dl Albumin/Globulin Ratio (0.9-2) TSH 2.108 (0.300-4.500) uIu/ml SARS-CoV-2, RNA, NAAT NEGATIVE (NEGATIVE) Administered Medications Acetaminophen (Acetaminophen 325 Mg Tab) 650 mg PO Q4H PRN PRN Reason: Pain or Fever Stop: 11/02/22 02:20 Last Admin: 10/03/22 04:08 Dose: 650 mg Documented By: [id number] Magnesium Sulfate/Dextrose (Magnesium Sulfate / D5w) 1 gm in 100 mls @ 50 mls/hr IV Q2H ROMIE Stop: 10/03/22 05:44 Last Admin: 10/03/22 03:58 Dose: 50 mls/hr Documented By: [id number] Discharge Plan Visit Data Chief Complaint: Tachycardia Stated Complaint: RACING HEART,SOB,WEAK,WARM ED Provider: Iqra Marie Discharge Problem: Cardiac dysrhythmia, Hypomagnesemia Patient Disposition: Admitted As Inpatient Discharge Instructions Interventions: ED Discharge Assessment Last Done: 10/03/22 02:00
--- NOTE | 2022-10-03 07:58 | XRay Report ---
XR chest 1V not portable HISTORY: Tachycardia. Atypical chest pain. COMPARISON: Chest CTA 10/02/2022. FINDINGS: The lungs are clear. Cardiac silhouette is normal in size. No pleural effusions. No pneumot horax. IMPRESSION: No acute process. ACT 112: Negative or not required by law. Electronically signed by: Que Thrasher M.D. 10/03/2022 7:56 AM
--- NOTE | 2022-10-03 08:16 | Ultrasound Report ---
US arterial duplex bilateral lower extremity CLINICAL HISTORY: claudication COMPARISON STUDY: None. FINDINGS: Normal velocities and triphasic waveforms seen throughout the bilateral lower extremity art erial systems. No calcified plaque identified. IMPRESSION: No significant stenosis or occlusion within the bilateral lower extremity arterial syste ms. ACT 112: Negative or not required by law. Electronically signed by: Que Thrasher M.D. 10/03/2022 8:14 AM
--- NOTE | 2022-10-03 08:17 | Hospitalist Progress Note ---
Date of Service October 03, 2022 Assessment & Plan (1) PVC (premature ventricular contraction): Plan: 27yo Male with PMH DVT with PE on xarelto, sickle cell trait, depression asthma here for palpitations tachycardia. Palpitations with PVCs -Mag 1.7, repleted with 2g Mg - cardiology saw the patient echocardiogram is with mild LVH no other regional wall motion abnormalities or I put per trophy. Recommendation is to initiate metoprolol tartrate 25 twice daily and up follow-up at [facility]. DVT PE sickle cell trait -continue xarelto -noted protein S deficiency, no factor V mutation noted Concern Claudication -ordered arterial dopplers results of arterial Doppler showed no significant stenosis or occlusion in the bilateral lower extremity arterial system Right lower leg pain -ordered R leg XR healing repaired stress fracture of the right mid tibia Depression -continue lexapro Code Status: Full DVT PPX: xarelto patient remain overnight for monitoring effects of metoprolol and PVCs PVCs (2) Protein S deficiency: (3) DVT (deep venous thrombosis): (4) Pulmonary emboli: Admission and Anticipated Discharge Date Admission Date: October 03, 2022 Subjective pt is asymptomatic from PVC, is without distress, Physical Exam Physical Exam: Cardiac exam is regular, lungs are clear Results & Data Results & Data Vital Signs (Past 12 Hours) Vital Signs Temp Pulse Pulse Resp BP BP Pulse Ox 10/03/22 07:42 98.2 F 97 H 20 120/74 95 10/03/22 02:25 98.6 F 109 H 18 133/82 94 10/03/22 02:21 112 H 10/03/22 02:47 99.1 F 103 H 20 133/82 95 10/03/22 01:00 101 H 20 125/81 95 10/02/22 23:35 107 H 10/02/22 23:14 122 H 10/02/22 23:08 115 H 10/02/22 23:11 94 10/02/22 23:09 98.2 F 103 H 18 156/108 H 94 10/02/22 22:44 98.1 F 86 18 136/101 H 95 O2 Del Method 10/03/22 07:42 Room Air 10/03/22 02:25 Room Air 10/03/22 02:21 10/03/22 02:47 Room Air 10/03/22 01:00 Room Air 10/02/22 23:35 10/02/22 23:14 10/02/22 23:08 10/02/22 23:11 Room Air 10/02/22 23:09 Room Air 10/02/22 22:44 Room Air Laboratory Results reviewed CBC reviewed chemistry reviewed coagulation PG Care Time/CCT Total # of Minutes Spent Total Time Spent with Patient: Total time spent is greater than 50% in coordination of care (as documented) at patient's floor/unit and/or counseling patient: Coding Level of Care Code 77645 SUB INP/OBS CARE 2/35MIN Diagnoses PVC (premature ventricular contraction) I49.3 Protein S deficiency D68.59 DVT (deep venous thrombosis) I82.552 Affected thrombotic vein of extremity: peroneal Chronicity: chronic DVT location: lower extremity Laterality: left Pulmonary emboli I27.82 Acute cor pulmonale presence: without acute cor pulmonale Chronicity: chronic Pulmonary embolism type: unspecified (3) DVT (deep venous thrombosis) Affected thrombotic vein of extremity: peroneal Chronicity: chronic DVT location: lower extremity Laterality: left Qualified Code(s): I82.552 - 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
--- NOTE | 2022-10-03 08:26 | XRay Report ---
XR tibia fibula RT 2V CLINICAL HISTORY: right leg pain COMPARISON STUDY: Right tibia/fibula 08/11/2022. FINDINGS: Lateral cortical plate and screws again noted within the mid shaft of the right tibia statu s post osteotomy. A small linear lucency at the mid shaft of the right tibia persists consistent with the osteotomy site. Slight progression of the bony bridging consistent with mild healing. No acute f racture or dislocation within the right tibia or fibula. No abnormal periprosthetic lucency. The hard ramachandran appears intact. No soft tissue gas identified. IMPRESSION: 1. Postoperative changes within the right tibia as described above with interval bony bridging of the osteotomy site. 2. No acute fracture or dislocation within the right lower leg. ACT 112: Negative or not required by law. Electronically signed by: Que Thrasher M.D. 10/03/2022 8:23 AM
[2022-10-03] MEDS: ESCITALOPRAM OXALATE 10 MG TAB PO SCH (08:36)
[2022-10-03] MEDS: CETIRIZINE HCL 10 MG TABLET PO SCH (08:37)
[2022-10-03] MEDS: PANTOprazole 40 MG TAB PO SCH (08:38)
--- NOTE | 2022-10-03 12:55 | XCELERA ---
[id number] \\[id number]-[email or web address]\[id number]_[id number]
--- NOTE | 2022-10-03 13:52 | Cardiology Consultation ---
Date of Consultation October 03, 2022 Assessment & Plan (1) PVC (premature ventricular contraction): 2. 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 Sickle cell trait 4. Borderline LVH Patient seen in the setting of palpitations with frequent ventricular ectopy (monomorphic PVCs with extended runs). No other associated symptoms. Very low suspicion for underlying coronary artery disease and previously had unremarkable exercise stress test. No findings to suggest inherited arrhythmia syndrome on ECG and no high-risk family history. Patient does have borderline concentric LVH on echo without clear etiology. Relatively low suspicion for HCM but would recommend Cardiac MR to rule out cardiomyopathy as an outpatient. Overall suspect etiology of PVCs idiopathic. Increased burden potentially triggered by stress from orthopedic issues/DVT and recent modest alcohol use over holiday. Recommendations: --No need for additional inpatient cardiac testing --Trial of metoprolol 25mg BID due to current PVC burden --Avoid alcohol, caffeine --Outpatient Cardiac MR --Repeat outpatient holter monitor to assess PVC burden on metoprolol --Plans to follow-up with [facility] through [facility]. 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 Can follow-up with [facility] cardi[facility] locally as needed. History of Present Illness Attending Physician: Fitz Patino MD History of Present Illness Mr. Patton is a very pleasant 27-year-old man with a history of prior VTE in the setting of protein S deficiency admitted in the setting of left below the knee DVT and palpitations with frequent PVCs. Other medical issues include asthma, sickle cell trait. VTE initially diagnosed 04/2022 after underwent right lower leg orthopedic surge ry secondary to tibia/fibula stress fracture. Initially treated with Eliquis for 3 months. After completion developed recurrent left lower extremity symptoms and was found to have left lower extremity DVT and increased bilateral lobar PE. Seen by hematology at [employer]. Hypercoagulable work-up remarkable for protein S deficiency. Started on Xarelto with plan for long-term therapy. Patient has been taking faithfully. Over the last 5 days has noted recurrent left calf/knee pain. Repeat ultrasound showed age-indeterminate thrombus in 1 of left peroneal veins. Arterial duplex without stenosis and triphasic waveforms throughout. Repeat CTA showed no acute PE but chronic trace PE in lower lobe pulmonary arteries. Over the last 2 days patient is also noted more increased palpitations. Desc ribes extra beat and then pause. No associated chest pain, shortness of breath or presyncope. Has had similar symptoms back in 2016. Has previously been seen by cardiology in [place] and at [facility]. Per patient report echo largely unremarkable. Previously underwent a exercise stress echo 03/2021 which per patient report was negative for ischemia. Additional medications discussed (sounds like beta-jr) but deferred due to concern for potential side effects. Holter monitor here 12/2020 showed only sinus rhythm. Prior ECG showed sinus rhythm without significant ST abnormalities. ECG 10/02/2022 at 2251 showed frequent PVCs with 1 run of 4 beats (150 bpm, origin ?LV posterior wall). Electrolytes, TSH unremarkable. HS TropI negative x2. Telemetry with frequent PVCs, slightly reduced frequency this morning. Echo today showed EF 55 to 60%, borderline LVH (septal/posterior chow 1.4 cm), no valve pathology. Family history: No known clotting disorder. No known history of premature CAD, SCD or cardiomyopathy Social history: From [place] originally. 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 Denies tobacco. Drinks on the weekends sometimes up to 4- 5 drinks. Had several drinks 3 days ago on September 30. Occasional energy drinks Allergies Allergy/AdvReac Type Severity Reaction Status Date / Time nickel Allergy Intermediate Rash Verified 09/17/22 12:54 pollen extracts Allergy Intermediate ITCHY Verified 09/17/22 12:54 EYES, SNEEZING, CONGESTION animal dander Allergy Uncoded 09/17/22 12:54 dust Allergy Uncoded 09/17/22 12:54 Home Medications Medication Instructions Recorded Confirmed Type albuterol sulfate 90 mcg/actuation 2 puff inhalation DIRECTED PRN 01/26/22 09/17/22 History aerosol inhaler Shortness Of Breath Or Wheezing cetirizine 10 mg tablet (Zyrtec) 10 mg PO QAM 01/26/22 09/17/22 History cholecalciferol (vitamin D3) 125 125 mcg PO QAM 01/26/22 09/17/22 History mcg (5,000 unit) tablet (Vitamin D3) fluticasone 250 mcg-salmeterol 50 1 inh inhalation BID 01/26/22 09/17/22 History mcg/dose blistr powdr for inhalation (Advair Diskus) montelukast 10 mg tablet 10 mg PO QAM 01/26/22 09/17/22 History (Singulair) desonide 0.05 % topical cream 1 applic topical UD PRN ezcema 03/31/22 09/17/22 History omeprazole magnesium 20 mg 20 mg PO QAM PRN gerd 03/31/22 09/17/22 History tablet,delayed release (Prilosec OTC) fluticasone propionate 50 2 spray intranasal DAILY PRN Nasal 05/08/22 09/17/22 History mcg/actuation nasal Congestion spray,suspension rivaroxaban 15 mg tablet (Xarelto) 15 mg PO BID #42 tabs 08/11/22 09/17/22 Rx escitalopram oxalate [Lexapro] PO 09/17/22 09/17/22 History metoprolol tartrate 25 mg tablet 25 mg PO BID #60 tabs 10/04/22 Rx rivaroxaban 20 mg tablet (Xarelto) 20 mg PO QDD #30 tabs 10/04/22 Rx Patient History Medical History Asthma excercise induced, uses inhaler prior to working out 4-5 times per week Environmental and seasonal allergies GERD (gastroesophageal reflux disease) Palpitations 07/2021- saw Isabella Helm for "benign palpitations"; happens occasionally, "every few weeks or so" Sickle cell trait Sleep apnea cpap Surgical History History of open reduction and internal fixation (ORIF) procedure Right Tibia Stress fracture Hx of wisdom tooth extraction Family History Other No family history of adverse response to anesthesia Social History Smoking Status: Never smoker Second Hand Exposure: No; Do You Dip or Chew Tobacco: No; Hx Alcohol Use: Yes Alcohol type: beer, wine and hard liquor Hx Substance Use: No Preferred Language: Indonesian Communication Ability: Effective Wood Polisher Required: No Beliefs That Will Affect Care: None Current Living Situation: Alone Current Living Situation Comment: Lives in apartment with roomate Other Information That Helps Us Care for You: No Feels Safe at Home: Yes Safety Concerns: Feels Safe At This Time Gender Identity: Other Assistive Devices: None Review of Systems Review of Systems: All systems reviewed & are unremarkable except as noted in HPI & below Physical Exam Physical Exam: General: Comfortable HEENT: Sclerae anicteric Lungs: Clear to auscultation bilaterally, no crackles or wheezes Cardiac: Regular rate and rhythm, frequent premature beats, no murmurs Vascular: 2+ radial, DP pulses. No bruits Abdomen: Soft, nontender Extremities: Well perfused, no peripheral edema Neuro: Nonfocal Psych: Alert orient x3, normal affect and mood Results & Data Vital Signs (Past 12 Hours) Vital Signs Temp Pulse Pulse Resp BP Pulse Ox O2 Del Method 10/03/22 11:21 97.9 F 81 20 131/83 97 Room Air 10/03/22 10:00 93 H 10/03/22 07:42 98.2 F 97 H 20 120/74 95 Room Air 10/03/22 02:25 98.6 F 109 H 18 133/82 94 Room Air 10/03/22 02:21 112 H 10/03/22 02:47 99.1 F 103 H 20 133/82 95 Room Air PG Care Time/CCT Total # of Minutes Spent Total Time Spent with Patient: Total time spent is greater than 50% in coordination of care (as documented) at patient's floor/unit and/or counseling patient: Coding Level of Care Code 64214 OFFICE CONSULT LVL Diagnoses PVC (premature ventricular contraction) I49.3
[2022-10-03] MEDS ORDERED: RIVAROXABAN 20 MG TAB PO SCH (16:30)
[2022-10-03] MEDS: FLUTICASONE/VILANTEROL 200/25MCG 14 PUFFS/INHALER INH SCH (18:29)
[2022-10-03] MEDS: METOPROLOL TARTRATE 25 MG TAB PO SCH (18:30)
[2022-10-03] MEDS ORDERED: METOPROLOL TARTRATE 25 MG TAB PO SCH (21:00)
[2022-10-03] MEDS ORDERED: MONTELUKAST SODIUM 10 MG TABLET PO SCH (21:00)
--- NOTE | 2022-10-04 06:44 | Electrocardiogram Report ---
Test Reason : Blood Pressure : / mmHG Vent. Rate : 102 BPM Atrial Rate : 102 BPM P-R Int : 130 ms QRS Dur : 078 ms QT Int : 320 ms P-R-T Axes : 047 019 005 degrees QTc Int : 417 ms Sinus tachycardia with frequent , and consecutive Premature ventricular complexes Abnormal ECG When compared with ECG of 02-OCT-2022 03:15, Premature ventricular complexes are now Present Confirmed by Good Ortiz ([id number]) on 10/04/2022 6:44:14 AM Referred By: REFERRED SELF Confirmed By:Good Ortiz
[2022-10-04] MEDS: FLUTICASONE/VILANTEROL 200/25MCG 14 PUFFS/INHALER INH SCH (08:04)
[2022-10-04] MEDS: CETIRIZINE HCL 10 MG TABLET PO SCH (08:04)
[2022-10-04] MEDS: ESCITALOPRAM OXALATE 10 MG TAB PO SCH (08:04)
[2022-10-04] MEDS: METOPROLOL TARTRATE 25 MG TAB PO SCH (08:04)
[2022-10-04] MEDS: PANTOprazole 40 MG TAB PO SCH (08:05)
[2022-10-04] MEDS ORDERED: METOPROLOL TARTRATE 25 MG TAB PO ONE (09:38)
[2022-10-04] MEDS ORDERED: MAGNESIUM OXIDE 400 MG TAB PO ONE (09:38)
--- NOTE | 2022-10-04 16:45 | Discharge Summary ---
Date of Service October 04, 2022 Admission HPI Per Admitting Provider 27yo Male with PMH DVT with PE on xarelto, depression sickle cell trait, asthma here for palpitations tachycardia. Yesterday patient had pain in left knee, went to physical therapy however pain continued to worsen he was concerned for blood clot so came to ED. In ED US leg revealed nonocclusive DVT that was present in July, CTA chest revealed PE from july has largely resolved. Patient's left knee pain resolved with tylenol, sent home. Last night patient was laying in bed when he developed palpitations, states occasional palpitations are normal for him but these persisted, his apple watch said he had atrial fibrillation so he returned to ED. ED telemetry noted frequent PVCs and some concern Vtach. At this time patient describes ongoing palpitations, some SOB with exertion, denies fever headache dizziness SOB at rest nausea pain. 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 Echo is currently scheduled later with kaela, patient wonders if it can be done in hospital. Principal Diagnosis ventricular ectopy previous DVT and PE (pulmonary embolism diagnosed 08/10/2022) healing mid tibial stress fracture status post surgical repair Discharge Exam patient awake alert appropriate palpitations have improved with increasing metoprolol therapy. Patient is able to ambulate without difficulty exception of his pre-existing leg discomfort cardiac exam sounds regular there is no murmurs Discharge Data Allergies Allergy/AdvReac Type Severity Reaction Status Date / Time nickel Allergy Intermediate Rash Verified 09/17/22 12:54 pollen extracts Allergy Intermediate ITCHY Verified 09/17/22 12:54 EYES, SNEEZING, CONGESTION animal dander Allergy Uncoded 09/17/22 12:54 dust Allergy Uncoded 09/17/22 12:54 Consultations 10/03/22 00:53 ED Decision to Admit Stat 10/03/22 01:48 Consult Cardiology Routine 10/04/22 12:37 Consult Health Information Management Routine Ordered Studies 10/03/22 01:48 US arterial duplex LE Routine Hospital Course (1) PVC (premature ventricular contraction): 27yo Male with PMH DVT with PE currently on xarelto, sickle cell trait, depression asthma here for palpitations tachycardia. Palpitations with PVCs -Mag 1.7, repleted with 2g Mg - cardiology saw the patient echocardiogram is with mild LVH no other regional wall motion abnormalities or I put per trophy. Recommendation is to initiate metoprolol tartrate, this was titrated up to 50 mg bid and to up follow-up at [facility] added some po magnesium to also help as initial mag was low Hx. DVT PE sickle cell trait -continue xarelto -noted protein S deficiency, no factor V mutation noted Concern Claudication -ordered arterial dopplers results of arterial Doppler showed no significant stenosis or occlusion in the bilateral lower extremity arterial system Right lower leg pain -ordered R leg XR healing repaired stress fracture of the right mid tibia Depression -continue lexapro Code Status: Full PVCs (2) Protein S deficiency: (3) DVT (deep venous thrombosis): (4) Pulmonary emboli: Total Time Total Time Spent Total Time Spent (In Minutes): it required greater than 30 minutes to prepare this patient for discharge Discharge Plan Discharge Items Patient Disposition: Home - Self-Care Reason For Visit: TACHYCARDIA Discharge Diagnosis: ventricular arrythmia thrombophilia, on chronic anticoagulation Activity: Per Instructions section Activity Comment: follow up with your home Physical thearapy as directed Non-emergency contact: Primary Care Provider and Specialist Call non-emergency contact if: your symptoms worsen Follow-up/Referrals: Katelin Christianson CRNP [Primary Care Provider] - Diet: Regular Addtl Attending Provider Instructions: take metoprolol 25 mg twice a day Medication Instructions: Your condition is typically treated with an anticoagulant. Anticoagulants will thin your blood to help prevent new clots. * You should take her medication exactly as directed. * Never skip a dose. * Never take a double dose. If you miss a dose, take it as soon as you remember. Call your Primary Care doctor if you experience any of the following: * Swelling or Pain in your leg * Sudden, continuous pain deep in a muscle * Pain that worsens when you are active or when you stand still for a long time * Chest Pain * Sudden Shortness of Breath * Rapid or pounding heart beat * Fainting * Dizziness * Cough with blood or bloody sputum * Sweating more than normal * Bruises * Heavy or uncontrolled bleeding * Blood in your urine, stool or vomit * Black or tarry stools Caring for Your Self at Home: * Avoid sitting, standing or lying down for long periods without moving your legs and feet * When traveling by car, stop to get out and move around at least once every 3 hours * On long airplane, train or bus rides, get up and move around when possible * If you can't get up, wiggle your toes and tighten your calves to keep your blood moving Follow Up: It is important for you to keep your follow up appointments with your medical provider. Pending Studies at Discharge: No Stand-Alone Forms: My [facility], Smoking Cessation Medications and DC Order Prescriptions: New Xarelto 20 mg Tablet 20 mg PO QDD Qty: 30 3RF metoprolol tartrate 50 mg tablet 50 mg PO BID Qty: 60 4RF magnesium oxide 400 mg magnesium capsule 400 mg PO BID Qty: 60 0RF Continued escitalopram oxalate [Lexapro] PO desonide 0.05 % cream 1 applic TOPICAL UD PRN (Reason: ezcema) omeprazole magnesium [Prilosec OTC] 20 mg Tablet,Delayed Release (Dr/Ec) 20 mg PO QAM PRN (Reason: gerd) fluticasone propionate 50 mcg/actuation Rowe,Suspension 2 spray INTRANASAL DAILY PRN (Reason: Nasal Congestion) Rx Instructions: administer into each nostril fluticasone propion-salmeterol [Advair Diskus] 250-50 mcg/dose Blister With Device 1 inh INHALATION BID cetirizine [Zyrtec] 10 mg Tablet 10 mg PO QAM montelukast [Singulair] 10 mg Tablet 10 mg PO QAM albuterol sulfate 90 mcg/actuation Hfa Aerosol Inhaler 2 puff INHALATION DIRECTED PRN (Reason: Shortness Of Breath Or Wheezing) cholecalciferol (vitamin D3) [Vitamin D3] 125 mcg (5,000 unit) Tablet 125 mcg PO QAM Discontinued Xarelto 15 mg Tablet 15 mg PO BID Qty: 42 0RF Discharge Orders: Discharge Order (Routine); Ordered 10/04/22 Ordered By: Fitz Perez/Other Patient Handouts: Your [employer]'s Electrical System Admission Data Admit Date/Time: 10/03/22 01:33 Attending Provider: Fitz Patino Admit Provider: Rosemary Nair Primary Care Provider: Katelin Christianson Other Providers: Cristiano Jara Charles C. Other Interventions: Discharge Summary Assessment (RN) Last Done: 10/04/22 12:30 Coding Level of Care Code 47907 INP/OBS DISCH >30 MIN Diagnoses PVC (premature ventricular contraction) I49.3 Protein S deficiency D68.59 DVT (deep venous thrombosis) I82.552 Affected thrombotic vein of extremity: peroneal Chronicity: chronic DVT location: lower extremity Laterality: left Pulmonary emboli I27.82 Acute cor pulmonale presence: without acute cor pulmonale Chronicity: chronic Pulmonary embolism type: unspecified
--- NOTE | 2022-10-04 19:50 | Billing Data ---
Date of Service October 04, 2022 Coding Level of Care Code 02873 INT INP/OBS CARE
== END 2022-10-04 13:31 | disposition home or self-care (01) ==
LOC: 2S 22:43 → ED 22:43 → SUATTDRO 10-03 01:33 → 2S 10-03 02:00